=== PATIENT | female | born 1965 | race Caucasian/White ===

== ENCOUNTER 2018-07-01 09:13 | Day surgery (SDC) | payer BC ==
[2018-06-24 10:39] VITALS: BMI 21.2
--- NOTE | 2018-07-01 05:43 | P.HPOB ---
History of Present Illness H&P Date: 07/01/18 Chief Complaint: abnormal bleeding 53 year old presents for D&C hysteroscopy for abnormal uterine bleeding. Review of Systems All systems: negative Constitutional: Denies chills, Denies fever Eyes: denies blurred vision, denies pain Ears, nose, mouth and throat: Denies headache, Denies sore throat Cardiovascular: Denies chest pain, Denies shortness of breath Respiratory: Denies cough Gastrointestinal: Denies abdominal pain, Denies diarrhea, Denies nausea, Denies vomiting Genitourinary: Denies dysuria, Denies hematuria Musculoskeletal: Denies myalgias Integumentary: Denies pruritus, Denies rash Neurological: Denies numbness, Denies weakness Psychiatric: Denies anxiety, Denies depression Endocrine: Denies fatigue, Denies weight change Past Medical History Past Medical History: No Reported History Additional Past Medical History / Comment(s): fibroid cyst on uterus and ovary. abnormal vaginal bleeding History of Any Multi-Drug Resistant Organisms: None Reported Past Surgical History: Back Surgery Additional Past Surgical History / Comment(s): D&C, Past Anesthesia/Blood Transfusion Reactions: No Reported Reaction Smoking Status: Current every day smoker - Past Family History Father Family Medical History: Deep Vein Thrombosis (DVT) Additional Family Medical History / Comment(s): PE and DVT Mother Family Medical History: Coronary Artery Disease (CAD) Additional Family Medical History / Comment(s): 1st heart attack at 50 - passed at 67 from CAD Medications and Allergies Home Medications Medication Instructions Recorded Confirmed Type Hydrocodone/Acetaminophen [[place] 1 tab PO Q6HR PRN #12 tab 05/28/18 06/24/18 Rx 5-325] Allergies Allergy/AdvReac Type Severity Reaction Status Date / Time No Known Allergies Allergy Verified 06/24/18 10:32 Exam Osteopathic Statement: *. No significant issues noted on an osteopathic structural exam other than those noted in the History and Physical/Consult. Heart: RRR Lungs: CTAB Abdomen: soft, nontender Extremeties: neg elizabeth's Assessment and Plan (1) Abnormal vaginal bleeding Status: Acute Code(s): N93.9 - ABNORMAL UTERINE AND VAGINAL BLEEDING, UNSPECIFIED SNOMED Code(s): 013733833 Plan: 1. D&C hysteroscopy
[~2018-07-01 09:13] MED LIST: DEXAMETHASONE SOD PHOSPHATE 10 MG/ML 1 ML VIAL IV ONE; HYDROmorphone 0.5 MG/0.5 ML SYRINGE IVP PRN; LACTATED RINGERS 1,000 ML IV SCH; LIDOCAINE 1% 20 ML VIAL (10MG/ML) FOR IV START INTRADERMA PRN; MIDAZOLAM (PF) 2 MG/2 ML VIAL IV PRN; ONDANSETRON 4 MG/2 ML VIAL IVP ONE; SCOPOLAMINE 1.5MG/72HR PATCH TRANSDERM ONE
[2018-07-01] MEDS ORDERED: LIDOCAINE 1% INJ 10MG/ML (20 ML MDV) ONE (09:59)
[2018-07-01] MEDS ORDERED: fentaNYL (PF) 50 MCG/ML 2 ML AMP ONE (09:59)
[2018-07-01] MEDS ORDERED: PROPOFOL 10 MG/ML 20 ML VIAL IV ONE (09:59)
[2018-07-01] MEDS ORDERED: MIDAZOLAM 2 MG/2 ML VIAL ONE (09:59)
[2018-07-01] MEDS ORDERED: KETOROLAC 30 MG/ML 1 ML VIAL ONE (09:59)
[2018-07-01] MEDS ORDERED: ePHEDrine SULFATE/0.9% NACL/PF 50 MG/5 ML SYRINGE IV ONE (09:59)
--- NOTE | 2018-07-01 10:28 | P.OP ---
Date of Procedure: 07/01/18 Preoperative Diagnosis: 1. abnormal uterine bleeding Postoperative Diagnosis: same Procedure(s) Performed: D&C, hysteroscopy Anesthesia: MAC Surgeon: Kaelyn Sanchez Estimated Blood Loss (ml): 3 IV fluids (ml): 200 Urine output (ml): 25 Pathology: other (Endometrial curettings) Condition: stable Disposition: PACU Operative Findings: Atrophic endometrium noted in the fundus of the uterus, there was some tissue noted in the lower uterine segment and cervix. Moderate amount of endometrial curettings. Uterus sounded to 11 cm Description of Procedure: Patient is taken the operating room where general anesthesia was obtained without difficulty. She is prepped and draped in normal sterile fashion in dorsal lithotomy position, legs placed in candycane stirrups. Bladder was drained of all urine. Weighted speculum placed in the vagina and the anterior lip the cervix was grasped with single-tooth tenaculum. The cervix is dilated to #7 Hegar dilator. Hysteroscopy was performed. The uterus does have a smooth contour, the lining appears very thin and the fundus near the tubal ostia. There is some tissue noted in the lower uterine segment and endocervix. Sharp curet was then gently used to obtain endometrial curettings. The uterus sounded to 11 cm. All instruments removed from the uterus and vagina. Patient tolerated procedure well, sponge and instrument counts correct 2. She was taken to recovery room in stable condition.
[2018-07-01 10:43] VITALS: TEMP 97.9
[2018-07-01 11:06] VITALS: RESP 18
[2018-07-01 11:46] VITALS: BP 128/68; PULSE 85
== END 2018-07-01 12:22 | disposition home or self-care (01) ==
LOC: OR 09:13 → MERGE 09:13 → OR 12:22
PROVIDERS: ATTEND Obstetrics & Gynecology
DX: N85.8 Other specified noninflammatory disorders of uterus (principal); Z87.42 Personal history of other diseases of the female genital tract; F17.210 Nicotine dependence, cigarettes, uncomplicated; G89.29 Other chronic pain; M54.9 Dorsalgia, unspecified; Z82.49 Family history of ischemic heart disease and other diseases of the circulatory system; Z79.891 Long term (current) use of opiate analgesic
CPT/HCPCS: 81025; 88305; 58558; J2250; J1100; J2405; J2001; J3010; J1885; J2704

== ENCOUNTER → 2018-08-23 | Outpatient (CLI) | payer BC ==
[2018-08-23 10:31] LABS: Anisocytosis Slight; Basophils % (A) 1 %; Eosinophils # (A) 0.1 k/uL (0-0.7); Eosinophils % (A) 2 %; HCT 31.6 % (34.0-46.0); Hypochromasia Marked; Lymphocytes % (A) 26 %; MCH 19.2 pg (25.0-35.0); MCHC 28.6 g/dL (31.0-37.0); MCV 67.2 fL (80.0-100.0); Mean Platelet Volume 6.5; Microcytosis Marked; Monocytes # (A) 0.4 k/uL (0-1.0); Monocytes % (A) 5 %; Neutrophils % (A) 64 %; Platelet Count 332 k/uL (150-450); Poikilocytosis Slight; RDW 16.9 % (11.5-15.5); WBC 7.7 k/uL (3.8-10.6)
[2018-08-23 11:09] LABS: Target Cells Present
[2018-08-23 17:19] LABS: Anion Gap 6.3 mmol/L (4.00-12.00); Calcium 8.4 mg/dL (8.7-10.3); Carbon Dioxide 20.7 mmol/L (21.6-31.8); Potassium 3.9 mmol/L (3.5-5.5)
== END ==
LOC: LABWHC1 09:10
PROVIDERS: ATTEND Obstetrics & Gynecology
DX: Z01.812 Encounter for preprocedural laboratory examination (principal)
CPT/HCPCS: 36415; 80048; 85025

== ENCOUNTER 2018-09-02 05:40 | Day surgery (SDC) | payer BC ==
[~2018-09-02 05:40] MED LIST changes: -DEXAMETHASONE SOD PHOSPHATE 10 MG/ML 1 ML VIAL IV ONE; -HYDROmorphone 0.5 MG/0.5 ML SYRINGE IVP PRN; -LACTATED RINGERS 1,000 ML IV SCH; -LIDOCAINE 1% 20 ML VIAL (10MG/ML) FOR IV START INTRADERMA PRN; -MIDAZOLAM (PF) 2 MG/2 ML VIAL IV PRN; -ONDANSETRON 4 MG/2 ML VIAL IVP ONE; -SCOPOLAMINE 1.5MG/72HR PATCH TRANSDERM ONE; +ceFAZolin IN SWFI 2 GM/20 ML SYRINGE IVP ONE
[2018-09-02] MEDS ORDERED: fentaNYL (PF) 50 MCG/ML 2 ML AMP IV PRN (05:44)
[2018-09-02] MEDS ORDERED: HYDROmorphone 0.5 MG/0.5 ML SYRINGE IVP PRN (05:44)
--- NOTE | 2018-09-02 05:49 | P.HPOB ---
History of Present Illness H&P Date: 09/02/18 Chief Complaint: pain and bleeding 53 year old presents for [facility] BSO with da dolly. She has been having cramping and continuous bleeding. D&C showed endometrial polyp and her pain is still present. Review of Systems All systems: negative Constitutional: Denies chills, Denies fever Eyes: denies blurred vision, denies pain Ears, nose, mouth and throat: Denies headache, Denies sore throat Cardiovascular: Denies chest pain, Denies shortness of breath Respiratory: Denies cough Gastrointestinal: Denies abdominal pain, Denies diarrhea, Denies nausea, Denies vomiting Genitourinary: Denies dysuria, Denies hematuria Musculoskeletal: Denies myalgias Integumentary: Denies pruritus, Denies rash Neurological: Denies numbness, Denies weakness Psychiatric: Denies anxiety, Denies depression Endocrine: Denies fatigue, Denies weight change Past Medical History Past Medical History: No Reported History Additional Past Medical History / Comment(s): cysts on ovaries and uterus-having pain with heavy bleeding and clotting History of Any Multi-Drug Resistant Organisms: None Reported Past Surgical History: Back Surgery Additional Past Surgical History / Comment(s): back surgery 2007, d and c Past Anesthesia/Blood Transfusion Reactions: No Reported Reaction Additional Past Anesthesia/Blood Transfusion Reaction / Comment(s): no hx blood transfusion Smoking Status: Current every day smoker - Past Family History Father Family Medical History: Deep Vein Thrombosis (DVT), Pulmonary Embolus Additional Family Medical History / Comment(s): PE and DVT Mother Family Medical History: Coronary Artery Disease (CAD), Myocardial Infarction ([place]) Additional Family Medical History / Comment(s): 1st heart attack at 50 - passed at 67 from CAD Medications and Allergies Home Medications Medication Instructions Recorded Confirmed Type Melatonin 5 mg PO HS 11/25/14 08/25/18 History Ibuprofen [Motrin] 600 mg PO Q6HR PRN #30 tab 07/01/18 08/25/18 Rx Allergies Allergy/AdvReac Type Severity Reaction Status Date / Time No Known Allergies Allergy Verified 08/25/18 10:34 Exam Osteopathic Statement: *. No significant issues noted on an osteopathic structural exam other than those noted in the History and Physical/Consult. HEart: RRR Lungs: CTAB Abdomen: soft, nontender Extremeties: neg elizabeth's Assessment and Plan (1) Dysfunctional uterine bleeding Current Visit: Yes Status: Acute Code(s): N93.8 - OTHER SPECIFIED ABNORMAL UTERINE AND VAGINAL BLEEDING SNOMED Code(s): 62788302 Plan: 1. [facility] BSO with da dolly and diagnostic cystoscopy
[2018-09-02] MEDS: LIDOCAINE 1% 20 ML VIAL (10MG/ML) FOR IV START INTRADERMA PRN ×2 (06:38→06:45)
[2018-09-02] MEDS: LACTATED RINGERS 1,000 ML IV SCH ×2 (06:43→10:15)
[2018-09-02] MEDS: ONDANSETRON 4 MG/2 ML VIAL IVP ONE ×2 (06:49→09:37)
[2018-09-02] MEDS ORDERED: MIDAZOLAM 2 MG/2 ML VIAL IVP ONE (06:56)
[2018-09-02] MEDS ORDERED: ROCURONIUM BROMIDE 10 MG/ML 10 ML VIAL IV ONE (07:08)
[2018-09-02] MEDS ORDERED: NEOSTIGMINE 1 MG/ML 10 ML VIAL ONE (07:08)
[2018-09-02] MEDS ORDERED: GLYCOPYRROLATE 0.2 MG/ML 2 ML VIAL ONE (07:08)
[2018-09-02] MEDS ORDERED: fentaNYL (PF) 50 MCG/ML 2 ML AMP ONE (07:08)
[2018-09-02] MEDS ORDERED: MIDAZOLAM 2 MG/2 ML VIAL ONE (07:08)
[2018-09-02] MEDS ORDERED: ESMOLOL 100 MG/10 ML VIAL ONE (07:08)
[2018-09-02] MEDS ORDERED: LIDOCAINE 1% INJ 10MG/ML (20 ML MDV) ONE (07:08)
[2018-09-02] MEDS ORDERED: PROPOFOL 10 MG/ML 20 ML VIAL IV ONE (07:08)
[2018-09-02] MEDS ORDERED: ROPIVACAINE 5 MG/ML 30 ML VIAL MISCELLANE ONE (07:56)
--- NOTE | 2018-09-02 09:36 | P.OP ---
Date of Procedure: 09/02/18 Preoperative Diagnosis: 1. dysfunctional uterine bleeding 2. fibroid uterus Postoperative Diagnosis: 1. dysfunctional uterine bleeding 2. fibroid uterus 3. Endometriosis with bilateral endometriomas 4. Right hydrosalpinx Procedure(s) Performed: Total laparoscopic hysterectomy with bilateral salpingo-oophorectomy using da Khai, diagnostic cystoscopy Anesthesia: BRITTON Surgeon: Kaelyn Sanchez Governor Assembler #1: Tank Le Estimated Blood Loss (ml): 200 IV fluids (ml): 1,000 Urine output (ml): 100 Pathology: other (Uterus cervix bilateral tubes and ovaries) Condition: stable Disposition: PACU Description of Procedure: Patient taken the operating room where general anesthesia was obtained without difficulty. She is prepped and draped in normal sterile fashion dorsal lithotomy position, legs placed in the Braulio stirrups. Weighted speculum placed in the vagina and the anterior lip the cervix was grasped with single-tooth tenaculum. The uterus sounded to 8 cm and the cervix diameter was 3.5 cm. The appropriate manipulator tip and ring were placed on the Faith manipulator. The Faith manipulator was then placed in the uterus. Adler catheter was also placed. Attention was then turned to the abdomen and gloves were changed. A 5 mm supraumbilical incision was made the scalpel and a 5 mm optical trocar was placed under direct visualization. 10 cm to the right of this and 2 cm down a 5 mm incision was made and 8 mm da Khai port was placed under direct visualization. Same measurements on the opposite side of the patient's abdomen, the 5 mm incision was made and 8 mm da Khai port was placed under direct visualization. In the left upper quadrant a 10 mm incision was made and a 10 mm optical trocar was placed under direct visualization. The 5 mm optical trocar was then replaced with the 8 mm da Khai camera port. The robot was docked on patient's right side. The camera was introduced and then the monopolar curved scissor and [place] bipolar placed under direct visualization. I broke scrub and went to the physician console. The left infundibulopelvic ligament was cauterized with the [place] bipolar and cut with monopolar curved scissors. The left round ligament was cauterized with the [place] bipolar and cut with monopolar curved scissors. The posterior leaf of the broad ligament was taken down using the monopolar curved scissors. Anterior leaf of the broad ligament was then taken down using the monopolar curved scissors. The uterine artery was cauterized with the [place] bipolar and cut with monopolar curved scissors. The bladder flap was then started using the monopolar curved scissors. Attention was then turned to the right side of the patient's anatomy and the right infundibular pelvic ligament was cauterized with the [place] bipolar and cut with monopolar curved scissors. The right round ligament was cauterized with the [place] bipolar and cut with monopolar curved scissors. Posterior leaf of the broad ligament was taken down using the monopolar curved scissors and the anterior leaf was taken down using the monopolar curved scissors. The uterine artery was cauterized the [place] bipolar cut with monopolar curved scissors. The bladder flap was then finished on this side. Anterior colpotomy was made using the monopolar curved scissors. The rest of the uterus was from the vaginal cuff by following the ring around with the monopolar curved scissors through the uterosacral ligaments back to the anterior portion. Once the uterus and cervix were amputated they were pulled through the vaginal cuff. Hemostasis was assured. The instruments were changed for the Cardier forcep and the fadi suture cut. The vaginal cuff was then closed using O stratafix barbed suture in a running fashion. Hemostasis was again assured and the pelvis was irrigated. All instruments were removed from the abdomen and the robot was undocked. I scrubbed back in to perform a cystoscopy. There were jets from both ureteral orifices. The abdominal incisions were closed with 4-0 Vicryl in a subcuticular fashion. Patient tolerated the procedure well, sponge and instrument counts correct 2 and she was taken to recovery room in stable condition condition
[2018-09-02] MEDS ORDERED: diphenhydrAMINE 50 MG/ML 1 ML VIAL IVP ONE (09:51)
[2018-09-02] MEDS ORDERED: SIMETHICONE 80 MG CHEWABLE PO PRN (10:17)
[2018-09-02] MEDS ORDERED: diphenhydrAMINE 50 MG/ML 1 ML VIAL IVP PRN (10:17)
[2018-09-02] MEDS ORDERED: ONDANSETRON 4 MG/2 ML VIAL IVP PRN (10:17)
[2018-09-02] MEDS ORDERED: IBUPROFEN 600 MG TAB PO PRN (10:17)
[2018-09-02] MEDS ORDERED: Acetaminophen-Codeine 300-30mg TAB PO PRN (10:17)
[2018-09-02] MEDS ORDERED: METOCLOPRAMIDE 5 MG/ML 2 ML VIAL IVP PRN (10:17)
[2018-09-02] MEDS: Acetaminophen-Codeine 300-30mg TAB PO PRN ×2 (12:46→18:42)
[2018-09-02 16:24] VITALS: BMI 21.6
[2018-09-02] MEDS ORDERED: MELATONIN 5 MG TABLET PO SCH (21:00)
[2018-09-02] MEDS: NICOTINE 21MG/24HR PATCH TRANSDERM SCH (21:40)
[2018-09-02] MEDS: SENNOSIDES-DOCUSATE SODIUM 1 EACH TAB PO SCH (21:40)
[2018-09-03] MEDS: Acetaminophen-Codeine 300-30mg TAB PO PRN ×3 (01:18→12:58)
[2018-09-03] MEDS: LACTATED RINGERS 1,000 ML IV SCH ×2 (04:16→10:17)
[2018-09-03 06:47] LABS: Anisocytosis Slight; Basophils % (A) 0 %; Eosinophils # (A) 0.1 k/uL (0-0.7); Eosinophils % (A) 1 %; HCT 29.6 % (34.0-46.0); HGB 8.2 gm/dL (11.4-16.0); Hypochromasia Marked; Lymphocytes # (A) 1.8 k/uL (1.0-4.8); Lymphocytes % (A) 22 %; MCH 18.9 pg (25.0-35.0); MCHC 27.7 g/dL (31.0-37.0); MCV 68.4 fL (80.0-100.0); Microcytosis Marked; Monocytes # (A) 0.5 k/uL (0-1.0); Monocytes % (A) 6 %; Neutrophils # (A) 5.7 k/uL (1.3-7.7); Neutrophils % (A) 70 %; Platelet Count 275 k/uL (150-450); RBC 4.33 m/uL (3.80-5.40); RDW 17.3 % (11.5-15.5); WBC 8.2 k/uL (3.8-10.6)
[2018-09-03] MEDS: SENNOSIDES-DOCUSATE SODIUM 1 EACH TAB PO SCH (09:21)
[2018-09-03 09:43] VITALS: BP 115/71; PULSE 86; RESP 16; TEMP 97.8
[2018-09-03] MEDS: NICOTINE 21MG/24HR PATCH TRANSDERM SCH (12:28)
== END 2018-09-03 13:30 | disposition home or self-care (01) ==
LOC: OR 05:40 → 6PED 08:56 → OR 09-03 13:30
PROVIDERS: ATTEND Obstetrics & Gynecology
DX: D25.9 Leiomyoma of uterus, unspecified (principal); N70.11 Chronic salpingitis; N80.0 Endometriosis of uterus; N84.0 Polyp of corpus uteri; D27.1 Benign neoplasm of left ovary; N83.02 Follicular cyst of left ovary; N94.89 Other specified conditions associated with female genital organs and menstrual cycle; F17.210 Nicotine dependence, cigarettes, uncomplicated; Z82.49 Family history of ischemic heart disease and other diseases of the circulatory system
CPT/HCPCS: 58571; 81025; 86900; 86901; 85025; 86850; 88309; 36415; S4990; J2250; J1200; J2710; J2405; J2001; J3010; J2795; J2704

== ENCOUNTER 2019-01-30 13:03 | Emergency (ER) | payer BC ==
[2019-01-30 13:10] VITALS: BP 159/98; PULSE 93; RESP 16; TEMP 98.4
--- NOTE | 2019-01-30 13:23 | ED ---
General Adult HPI - General Chief complaint: Extremity Problem,Nontraumatic Stated complaint: Arm swollen/fluid Source: patient, RN notes reviewed Mode of arrival: ambulatory Limitations: no limitations - History of Present Illness Initial comments: This is a 53-year-old female who presents to the emergency department complaining of left elbow swelling. Patient states she doesn't remember any trauma. Patient states he is more swollen on Thursday and since been decreasing. Patient states today she noticed black and blue around the elbow is so she decided to come into the emergency department. Patient states on Thursday she did go to the urgent care they did x-rays and she said the x-rays are negative. Because they're negative does not want repeat x-rays. Patient denies any redness patient denies any fever chills patient denies any decreased range of motion. Patient states it is slightly tender in the areas of bruising. - Related Data Home Medications Medication Instructions Recorded Confirmed Melatonin 5 mg PO HS 11/25/09/02/18 Previous Rx's Medication Instructions Recorded Acetaminophen-Codeine 300-30mg 2 each PO Q6HR PRN #24 tab 09/03/18 [Tylenol w/codeine #3] Ibuprofen [Motrin] 600 mg PO Q6HR PRN #30 tab 09/03/18 Allergies Allergy/AdvReac Type Severity Reaction Status Date / Time No Known Allergies Allergy Verified 09/02/18 11:30 Review of Systems ROS Statement: Those systems with pertinent positive or pertinent negative responses have been documented in the HPI. ROS Other: All systems not noted in ROS Statement are negative. Past Medical History Past Medical History: No Reported History Additional Past Medical History / Comment(s): cysts on ovaries and uterus-having pain with heavy bleeding and clotting History of Any Multi-Drug Resistant Organisms: None Reported Past Surgical History: Back Surgery Additional Past Surgical History / Comment(s): back surgery 2008, d and c Past Anesthesia/Blood Transfusion Reactions: No Reported Reaction Additional Past Anesthesia/Blood Transfusion Reaction / Comment(s): no hx blood transfusion Past Psychological History: No Psychological Hx Reported Smoking Status: Current every day smoker - Past Family History Father Family Medical History: Deep Vein Thrombosis (DVT), Pulmonary Embolus Additional Family Medical History / Comment(s): PE and DVT Mother Family Medical History: Coronary Artery Disease (CAD), Myocardial Infarction ([place]) Additional Family Medical History / Comment(s): 1st heart attack at 50 - passed at 67 from CAD General Exam - General Exam Comments Initial Comments: GENERAL Patient is well-developed and well-nourished. Patient is in mild distress. EYES Patient's pupils are equal and round. Extraocular motion is intact SKIN Unremarkable NEURO The patient is alert and oriented 3 PYSCH Patient has normal interpersonal interactions. MUSCULOSKELETAL Left elbow has ecchymosis around the whole elbow slightly tender to touch no fluid accumulation no obvious olecranon bursitis. Limitations: no limitations Course Vital Signs 01/30/19 13:07 Temperature 98.4 F Pulse Rate 93 Respiratory 16 Rate Blood Pressure 159/98 O2 Sat by Pulse 98 Oximetry Disposition Clinical Impression: Elbow contusion Disposition: HOME SELF-CARE Instructions (If sedation given, give patient instructions): Contusion in Adults (ED) Is patient prescribed a controlled substance at d/c from ED?: No Referrals: None,Stated [Primary Care Provider] - 1-2 days Time of Disposition: 13:22
== END 2019-01-30 13:41 | disposition home or self-care (01) ==
LOC: EC 13:03
DX: S50.02XA Contusion of left elbow, initial encounter (principal); F17.200 Nicotine dependence, unspecified, uncomplicated; X58.XXXA Exposure to other specified factors, initial encounter
CPT/HCPCS: 99283

== ENCOUNTER 2019-12-20 17:36 | Emergency (ER) | payer BC ==
[2019-12-20 17:43] VITALS: BP 140/91; RESP 20; TEMP 98.1
[2019-12-20] MEDS ORDERED: ASPIRIN 81 MG PO STA (17:57)
[2019-12-20] MEDS ORDERED: SODIUM CHLORIDE 0.9% 500 ML 500 ML IV STA (17:57)
[2019-12-20 18:17] LABS: Basophils % (A) 0 %; Eosinophils # (A) 0.2 k/uL (0-0.7); Eosinophils % (A) 2 %; HCT 50.8 % (34.0-46.0); HGB 16.2 gm/dL (11.4-16.0); Lymphocytes # (A) 2.8 k/uL (1.0-4.8); Lymphocytes % (A) 34 %; MCH 26.6 pg (25.0-35.0); MCV 83.2 fL (80.0-100.0); Mean Platelet Volume 7.5; Monocytes # (A) 0.5 k/uL (0-1.0); Monocytes % (A) 6 %; Neutrophils # (A) 4.6 k/uL (1.3-7.7); Neutrophils % (A) 56 %; Platelet Count 273 k/uL (150-450); RBC 6.11 m/uL (3.80-5.40); RDW 14.8 % (11.5-15.5); WBC 8.3 k/uL (3.8-10.6)
[2019-12-20 18:26] LABS: ALT 10 U/L (4-34); AST 20 U/L (14-36); African American GFR (CKD) >90 (>60 ml/min/1.73 sqM); Albumin 4.2 g/dL (3.5-5.0); Alkaline Phosphatase 94 U/L (38-126); Anion Gap 10 mmol/L; Blood Urea Nitrogen 7 mg/dL (7-17); Calcium 9.6 mg/dL (8.4-10.2); Carbon Dioxide 21 mmol/L (22-30); Chloride 108 mmol/L (98-107); Glucose 92 mg/dL (74-99); Magnesium 2.1 mg/dL (1.6-2.3); Non-African American GFR(CKD) >90 (>60 ml/min/1.73 sqM); Sodium 139 mmol/L (137-145); Total Bilirubin 0.6 mg/dL (0.2-1.3)
[2019-12-20 18:27] LABS: INR 0.9 (<1.2); Partial Thromboplastin Time 25.1 sec (22.0-30.0); Prothrombin Time 9.8 sec (9.0-12.0)
[2019-12-20] MEDS ORDERED: IPRATROPIUM-ALBUTEROL 3 ML NEB INHALATION STA (18:51)
--- NOTE | 2019-12-20 18:54 | CT ---
EXAMINATION TYPE: CT chest angio for PE DATE OF EXAM: 12/20/2019 COMPARISON: 01/12/2018 HISTORY: chest pain, SOB CT DLP: 295.4 mGycm Automated exposure control for dose reduction was used. CONTRAST: Performed with IV Contrast, patient injected with 80cc mL of Isovue 370. There are 3-D post processed images. There is some groundglass interstitial infiltrates in the posterior lung nazario. There is no evidence of a pulmonary mass. There is no pleural effusion. There is no pericardial effusion. There is no mediastinal adenopathy. There are no hilar masses. There are a few bilateral bronchial ly mph nodes that measure up to 1 cm. There is normal contrast opacification of the pulmonary arteries. There are no filling defects. Thora cic aorta shows no sign of aneurysm or dissection. Thoracic vertebra have normal spacing and alignmen t. Posterior elements are intact. There are calcified splenic granulomata. IMPRESSION: Interstitial pulmonary infiltrates. No evidence of pulmonary embolism. No significant change compared to old exam.
[2019-12-20 19:20] VITALS: PULSE 79
[2019-12-20] MEDS ORDERED: AZITHROMYCIN 500 MG in SODIUM CHLORIDE 0.9% 250 ML IVPB STA (19:52)
[2019-12-20] MEDS ORDERED: AZITHROMYCIN 500 MG TAB PO STA (20:31)
[2019-12-20] MEDS: cefTRIAXone 1,000 MG VIAL (IM USE) IM STA ×2 (20:36→20:40)
--- NOTE | 2019-12-20 20:40 | ED ---
General Adult HPI - General Source: patient, RN notes reviewed, old records reviewed Mode of arrival: ambulatory Limitations: no limitations <Nick Ricketts - Last Filed: 12/20/19 20:31> <Mariely Pak - Last Filed: 12/26/19 00:37> - General Chief complaint: Chest Pain Stated complaint: LAURA Time Seen by Provider: 12/20/19 17:48 - History of Present Illness Initial comments: 53-year-old female patient was ED for evaluation of chest pain difficulty breathing. This noted around 2:00 today. Patient reports that at that time she found out that she had a mammogram which noticed some dense tissue that she had ureteral damage. Reports that she was very anxious about this. While driving to work she began to experience chest pain described as a sharp pain in both parasternal regions. Also some shortness of breath associated with it. Denies any other complaints. Systemic: Pt denies fatigue, fever/chills, rash. Pt denies weakness, night sweats, weight loss. Neuro: Pt denies headache, visual disturbances, syncope or pre-syncope. HEENT: Pt denies ocular discharge or irritation, otalgia, rhinorrhea, phar yngitis or notable lymphadenopathy. Cardiopulmonary: Pt denies heart palpitations. Abdominal/GI: Pt denies abdominal pain, n/v/d. : Pt denies dysuria, burning w/ urination, frequency/urgency. Denies new onset urinary or bowel incontinence. MSK: Pt denies myalgia, loss of strength or function in extremities. Neuro: Pt denies new onset weakness, paresthesias. (Nick Ricketts) - Related Data Home Medications Medication Instructions Recorded Confirmed Gabapentin 600 mg PO TID 12/20/19 12/20/19 Melatonin 5 mg PO HS PRN 12/20/19 12/20/19 Venlafaxine HCl [Effexor] 100 mg PO HS 12/20/19 12/20/19 Previous Rx's Medication Instructions Recorded Albuterol Inhaler [Ventolin Hfa 2 puff INHALATION RT-QID PRN #1 12/20/19 Inhaler] inhaler Albuterol Nebulized [Ventolin 2.5 mg INHALATION Q4H PRN 10 Days 12/20/19 Nebulized] #40 nebu Azithromycin [Zithromax Z-pack] 0 mg PO DIRECTED #6 tab 12/20/19 Allergies Allergy/AdvReac Type Severity Reaction Status Date / Time No Known Allergies Allergy Verified 12/20/19 19:17 Review of Systems ROS Other: All systems not noted in ROS Statement are negative. <LiliamNick Radha - Last Filed: 12/20/19 20:31> ROS Other: All systems not noted in ROS Statement are negative. <Teodoro Pakah Fabi - Last Filed: 12/26/19 00:37> ROS Statement: Those systems with pertinent positive or pertinent negative responses have been documented in the HPI. Past Medical History Past Medical History: No Reported History Additional Past Medical History / Comment(s): cysts on ovaries and uterus-having pain with heavy bleeding and clotting History of Any Multi-Drug Resistant Organisms: None Reported Past Surgical History: Back Surgery Additional Past Surgical History / Comment(s): back surgery 2007, d and c Past Anesthesia/Blood Transfusion Reactions: No Reported Reaction Additional Past Anesthesia/Blood Transfusion Reaction / Comment(s): no hx blood transfusion Past Psychological History: No Psychological Hx Reported Smoking Status: Current every day smoker Past Alcohol Use History: Occasional Past Drug Use History: Marijuana - Past Family History Father Family Medical History: Deep Vein Thrombosis (DVT), Pulmonary Embolus Additional Family Medical History / Comment(s): PE and DVT Mother Family Medical History: Coronary Artery Disease (CAD), Myocardial Infarction ([place]) Additional Family Medical History / Comment(s): 1st heart attack at 50 - passed at 67 from CAD <Nick Ricketts - Last Filed: 12/20/19 20:31> General Exam Limitations: no limitations <Nick Ricketts - Last Filed: 12/20/19 20:31> - General Exam Comments Initial Comments: Constitutional: NAD, AOX3, Pt has pleasant affect. HEENT: NC/AT, trachea midline, neck supple, no lymphadenopathy. Posterior pharynx non erythematous, without exudates. External ears appear normal, without discharge. Mucous membranes moist. Eyes PERRLA, EOM intact. There is no scleral icterus. No pallor noted. Cardiopulmonary: RRR, no murmurs, rubs or gallops, no JVD noted. Mild wheezing noted anteriorly along nazario. Improved air movement after breathing treatment. No peripheral edema. Abdominal exam: Abdomen soft and non-distended. Abdomen non-tender to palpation in all 4 quadrants. Bowel sounds active in LLQ. No hepatosplenomegaly. No ecchymosis Neuro: CN II-XII grossly intact. No nuchal rigidity. No raccon eyes, no griffin sign, no hemotympanum. No cervical spinal tenderness. MSK: No posterior calf tenderness bilaterally, homans sign negative bilaterally. Posterior tibialis and radial pulse +2 bilaterally. Sensation intact in upper and lower extremities. Full active ROM in upper and lower extremities, 5/5 stregnth. (Nick Ricketts) Course Vital Signs 12/20/19 12/20/19 12/20/19 17:41 19:13 19:20 Temperature 98.1 F Pulse Rate 100 82 79 Respiratory 20 Rate Blood Pressure 140/91 O2 Sat by Pulse 97 Oximetry Medical Decision Making - Lab Data Result diagrams: 12/20/19 18:06 12/20/19 18:06 - EKG Data -: EKG Interpreted by Me (and Dr. Pak ) <Nick Ricketts - Last Filed: 12/20/19 20:31> - Lab Data Result diagrams: 12/20/19 18:06 12/20/19 18:06 <Mariely Pak - Last Filed: 12/26/19 00:37> - Medical Decision Making 54-year-old female patient with seizure evaluation of chest pain and shortness of breath. Describes the pain is parasternal bilaterally. Sharp. Physical exam displayed some mild wheezing improve air movement after breathing treatment. Laboratory investigations are non-impressive. Troponin is negative. CT chest angiography displayed interstitial pulmonary infiltrates. No evidence of pulmonary embolism.Can change compared to old exam. Patient does report that she is having a cough which is productive in nature EKG displayed normal sinus rhythm, possible left atrial enlargement, incomplete right bundle branch block. Septal infarct age undetermined. There are some nonspecific changes from her prior EKG on 06/23/2018. I advised patient to state Hospital for admission. She declined this. I discussed risks including . She verbalized understanding she still wishes to leave. She states that her symptoms have resolved. I explained all medical test, imaging and EKG findings. She again verbalized understanding and refuses to stay. was present during this portion. I will prescribe patient azithromycin for possible pneumonia as well as breathing treatments. Patient to follow-up with the primary care provider as well as her engineer assistant tomorrow. She does report that she had a negative stress test last year. Patient will be signed out AMA. Case discussed with Dr. Pak. (Nick Ricketts) I was available for consultation in the emergency department. The history and physical exam were done by the midlevel provider. I was consulted for this patients care. I reviewed the case with the midlevel provider and based on their presentation of the patient, I agree with the assessment, medical decision making and plan of care as documented. Chart was dictated using [employer] dictation software. Attempts were made to correct any dictation errors however some typographical errors may persist. Patient was seen during a national state of emergency due to the Covid-19 pandemic. (Mariely Pak) - Lab Data Lab Results 12/20/19 12/20/19 12/20/19 Range/Units 18:06 18:06 18:06 WBC 8.3 (3.8-10.6) k/uL RBC 6.11 H (3.80-5.40) m/uL Hgb 16.2 H (11.4-16.0) gm/dL Hct 50.8 H (34.0-46.0) % MCV 83.2 (80.0-100.0) fL MCH 26.6 (25.0-35.0) pg MCHC 32.0 (31.0-37.0) g/dL RDW 14.8 (11.5-15.5) % Plt Count 273 (150-450) k/uL Neutrophils % 56 % Lymphocytes % 34 % Monocytes % 6 % Eosinophils % 2 % Basophils % 0 % Neutrophils # 4.6 (1.3-7.7) k/uL Lymphocytes # 2.8 (1.0-4.8) k/uL Monocytes # 0.5 (0-1.0) k/uL Eosinophils # 0.2 (0-0.7) k/uL Basophils # 0.0 (0-0.2) k/uL PT 9.8 (9.0-12.0) sec INR 0.9 (<1.2) APTT 25.1 (22.0-30.0) sec Sodium 139 (137-145) mmol/L Potassium 4.0 (3.5-5.1) mmol/L Chloride 108 H (98-107) mmol/L Carbon Dioxide 21 L (22-30) mmol/L Anion Gap 10 mmol/L BUN 7 (7-17) mg/dL Creatinine 0.56 (0.52-1.04) mg/dL Est GFR (CKD-EPI)AfAm >90 (>60 ml/min/1.73 sqM) Est GFR (CKD-EPI)NonAf >90 (>60 ml/min/1.73 sqM) Glucose 92 (74-99) mg/dL Calcium 9.6 (8.4-10.2) mg/dL Magnesium 2.1 (1.6-2.3) mg/dL Total Bilirubin 0.6 (0.2-1.3) mg/dL AST 20 (14-36) U/L ALT 10 (4-34) U/L Alkaline Phosphatase 94 (38-126) U/L Troponin I (0.000-0.034) ng/mL NT-Pro-B Natriuret Pep pg/mL Total Protein 7.0 (6.3-8.2) g/dL Albumin 4.2 (3.5-5.0) g/dL 12/20/19 12/20/19 Range/Units 18:06 18:06 WBC (3.8-10.6) k/uL RBC (3.80-5.40) m/uL Hgb (11.4-16.0) gm/dL Hct (34.0-46.0) % MCV (80.0-100.0) fL MCH (25.0-35.0) pg MCHC (31.0-37.0) g/dL RDW (11.5-15.5) % Plt Count (150-450) k/uL Neutrophils % % Lymphocytes % % Monocytes % % Eosinophils % % Basophils % % Neutrophils # (1.3-7.7) k/uL Lymphocytes # (1.0-4.8) k/uL Monocytes # (0-1.0) k/uL Eosinophils # (0-0.7) k/uL Basophils # (0-0.2) k/uL PT (9.0-12.0) sec INR (<1.2) APTT (22.0-30.0) sec Sodium (137-145) mmol/L Potassium (3.5-5.1) mmol/L Chloride (98-107) mmol/L Carbon Dioxide (22-30) mmol/L Anion Gap mmol/L BUN (7-17) mg/dL Creatinine (0.52-1.04) mg/dL Est GFR (CKD-EPI)AfAm (>60 ml/min/1.73 sqM) Est GFR (CKD-EPI)NonAf (>60 ml/min/1.73 sqM) Glucose (74-99) mg/dL Calcium (8.4-10.2) mg/dL Magnesium (1.6-2.3) mg/dL Total Bilirubin (0.2-1.3) mg/dL AST (14-36) U/L ALT (4-34) U/L Alkaline Phosphatase (38-126) U/L Troponin I <0.012 (0.000-0.034) ng/mL NT-Pro-B Natriuret Pep 28 pg/mL Total Protein (6.3-8.2) g/dL Albumin (3.5-5.0) g/dL - EKG Data EKG Comments: Ventricular rate 86. For 136, QRS 100, QT/QTC 392/469. No sensory rhythm, possible left atrial enlargement. Complete right bundle-branch block. Septal infarct age undetermined. Abnormal EKG. (Nick Ricketts) Disposition Is patient prescribed a controlled substance at d/c from ED?: No <Nick Ricketts - Last Filed: 12/20/19 20:31> <Mariely Pak - Last Filed: 12/26/19 00:37> Clinical Impression: Chest pain, Pneumonia Disposition: Left Against Medical Advice Condition: Undetermined Instructions (If sedation given, give patient instructions): Chest Pain (ED), Pneumonia (ED) Additional Instructions: Follow-up with primary care provider and engineer assistant tomorrow. Take antibiotics as directed. Return to ER if condition worsens in any way. Use breathing treatments as needed. Prescriptions: Albuterol Inhaler [Ventolin Hfa Inhaler] 2 puff INHALATION RT-QID PRN #1 inhaler PRN Reason: Wheezing Albuterol Nebulized [Ventolin Nebulized] 2.5 mg INHALATION Q4H PRN 10 Days #40 nebu PRN Reason: Cough Azithromycin [Zithromax Z-pack] 0 mg PO DIRECTED #6 tab Referrals: Elier Macedo MD [Primary Care Provider] - 1-2 days
== END 2019-12-20 20:51 | disposition left against medical advice (07) ==
LOC: EC 17:36
DX: J18.9 Pneumonia, unspecified organism (principal); F17.200 Nicotine dependence, unspecified, uncomplicated; Z53.29 Procedure and treatment not carried out because of patient's decision for other reasons
CPT/HCPCS: 99285; 96374; 96361; 36415; 94640; 83880; 80053; 83735; 84484; 85025; 85610; 85730; 71275; J0696; Q9967

== ENCOUNTER 2020-02-27 18:21 | Emergency (ER) | payer BC ==
[2020-02-27 18:26] VITALS: RESP 18; TEMP 97.6
[2020-02-27] MEDS ORDERED: KETOROLAC 15 MG/ML 1 ML VIAL IM STA (18:39)
--- NOTE | 2020-02-27 18:42 | ED ---
General Adult HPI - General Chief complaint: Chest Pain Stated complaint: chest pain Time Seen by Provider: 02/27/20 18:30 Source: patient Mode of arrival: ambulatory Limitations: no limitations - History of Present Illness Initial comments: Dictation was produced using [employer] dictation software. please excuse any grammatical, word or spelling errors. This patient was cared for during a federal and state declared state of emergency secondary to Covid 19 Chief Complaint: 55-year-old female presents today with chest pain. History of Present Illness: This 55-year-old female she has no significant past medical history. Patient states she has sharp chest pain. Swirsky depressed and when she moves. Patient has a history of coronary artery disease. Denies any shortness of breath. She is of the pain began as a sharp pain and suddenly became more dull. No radiation to the jaw, shoulders or extremities. Patient denies any history of blood clots. She has no leg symptoms. The ROS documented in this emergency department record has been reviewed and confirmed by me. Those systems with pertinent positive or negative responses have been documented in the HPI. All other systems are other negative and/or noncontributory. PHYSICAL EXAM: General Impression: Alert and oriented x3, acute distress secondary to pain HEENT: Normocephalic atraumatic, extra-ocular movements intact, pupils equal and reactive to light bilaterally, mucous membranes moist. Cardiovascular: Heart regular rate and rhythm Chest: Able to complete full sentences, no retractions, no tachypnea, tenderness to palpation to the anterior sternum and left anterior chest wall Abdomen: abdomen soft, non-tender, non-distended, no organomegaly Musculoskeletal: Pulses present and equal in all extremities, no peripheral edema Motor: no focal deficits noted Neurological: CN II-XII grossly intact, no focal motor or sensory deficits noted Skin: Intact with no visualized rashes Psych: Normal affect and mood ED course: 55-year-old female with clinical presentation consistent with costochondritis. Patient's pain is very atypical and reproducible at bedside. Signs upon arrival are within acceptable limits. She is not tachycardic or hypoxic. EKG does not show any signs of ischemia or infarction. Laboratory evaluation obtained. CBC, metabolic panel is unremarkable. Troponin is negative. Chest x-ray is nonacute. Patient reevaluated bedside and reports significant improvement Toradol. Discussed with patient that her pain is secondary to muscle skeletal cause likely costochondritis. Patient to take [id number] analgesia. She is given Tylenol No. 3 starter pack and Lidoderm patch. Patient be discharged. EKG interpretation: Ventricular rate 86, normal sinus rhythm,. 160, QRS 96. No KS prolongation, no QTC prolongation, no ST or T-wave changes noted. Overall, this EKG is unremarkable - Related Data Home Medications Medication Instructions Recorded Confirmed Gabapentin 600 mg PO TID 12/20/19 12/20/19 Melatonin 5 mg PO HS PRN 12/20/19 12/20/19 Venlafaxine HCl [Effexor] 100 mg PO HS 12/20/19 12/20/19 Previous Rx's Medication Instructions Recorded Albuterol Inhaler [Ventolin Hfa 2 puff INHALATION RT-QID PRN #1 12/20/19 Inhaler] inhaler Albuterol Nebulized [Ventolin 2.5 mg INHALATION Q4H PRN 10 Days 12/20/19 Nebulized] #40 nebu Azithromycin [Zithromax Z-pack] 0 mg PO DIRECTED #6 tab 12/20/19 Allergies Allergy/AdvReac Type Severity Reaction Status Date / Time No Known Allergies Allergy Verified 02/27/20 18:26 Review of Systems ROS Statement: Those systems with pertinent positive or pertinent negative responses have been documented in the HPI. ROS Other: All systems not noted in ROS Statement are negative. Past Medical History Past Medical History: No Reported History Additional Past Medical History / Comment(s): cysts on ovaries and uterus-having pain with heavy bleeding and clotting History of Any Multi-Drug Resistant Organisms: None Reported Past Surgical History: Back Surgery Additional Past Surgical History / Comment(s): back surgery 2008, d and c Past Anesthesia/Blood Transfusion Reactions: No Reported Reaction Additional Past Anesthesia/Blood Transfusion Reaction / Comment(s): no hx blood transfusion Past Psychological History: No Psychological Hx Reported Past Alcohol Use History: Occasional Past Drug Use History: Marijuana - Past Family History Father Family Medical History: Deep Vein Thrombosis (DVT), Pulmonary Embolus Additional Family Medical History / Comment(s): PE and DVT Mother Family Medical History: Coronary Artery Disease (CAD), Myocardial Infarction ([place]) Additional Family Medical History / Comment(s): 1st heart attack at 50 - passed at 67 from CAD General Exam Limitations: no limitations Course Vital Signs 02/27/20 18:23 Temperature 97.6 F Pulse Rate 95 Respiratory 18 Rate Blood Pressure 157/82 O2 Sat by Pulse 99 Oximetry Medical Decision Making - Lab Data Result diagrams: 02/27/20 19:04 02/27/20 19:04 Lab Results 02/27/20 02/27/20 02/27/20 Range/Units 19:04 19:04 19:04 WBC 11.5 H (3.8-10.6) k/uL RBC 6.18 H (3.80-5.40) m/uL Hgb 16.8 H (11.4-16.0) gm/dL Hct 53.2 H (34.0-46.0) % MCV 86.1 (80.0-100.0) fL MCH 27.2 (25.0-35.0) pg MCHC 31.6 (31.0-37.0) g/dL RDW 14.1 (11.5-15.5) % Plt Count 259 (150-450) k/uL Neutrophils % 71 % Lymphocytes % 20 % Monocytes % 4 % Eosinophils % 1 % Basophils % 2 % Neutrophils # 8.1 H (1.3-7.7) k/uL Lymphocytes # 2.3 (1.0-4.8) k/uL Monocytes # 0.5 (0-1.0) k/uL Eosinophils # 0.1 (0-0.7) k/uL Basophils # 0.3 H (0-0.2) k/uL Sodium 140 (137-145) mmol/L Potassium 3.9 (3.5-5.1) mmol/L Chloride 109 H (98-107) mmol/L Carbon Dioxide 21 L (22-30) mmol/L Anion Gap 10 mmol/L BUN 7 (7-17) mg/dL Creatinine 0.56 (0.52-1.04) mg/dL Est GFR (CKD-EPI)AfAm >90 (>60 ml/min/1.73 sqM) Est GFR (CKD-EPI)NonAf >90 (>60 ml/min/1.73 sqM) Glucose 94 (74-99) mg/dL Calcium 9.3 (8.4-10.2) mg/dL Troponin I <0.012 (0.000-0.034) ng/mL Disposition Clinical Impression: Chest pain Disposition: HOME SELF-CARE Condition: Good Instructions (If sedation given, give patient instructions): Costochondritis (ED) Is patient prescribed a controlled substance at d/c from ED?: No Referrals: Elier Macedo MD [Primary Care Provider] - 1-2 days Time of Disposition: 19:48
[2020-02-27] MEDS ORDERED: KETOROLAC 15 MG/ML 1 ML VIAL IVP STA (18:53)
[2020-02-27 19:10] LABS: Basophils # (A) 0.3 k/uL (0-0.2); Basophils % (A) 2 %; Eosinophils # (A) 0.1 k/uL (0-0.7); Eosinophils % (A) 1 %; HCT 53.2 % (34.0-46.0); HGB 16.8 gm/dL (11.4-16.0); Lymphocytes # (A) 2.3 k/uL (1.0-4.8); Lymphocytes % (A) 20 %; MCH 27.2 pg (25.0-35.0); MCHC 31.6 g/dL (31.0-37.0); MCV 86.1 fL (80.0-100.0); Mean Platelet Volume 7.8; Monocytes # (A) 0.5 k/uL (0-1.0); Monocytes % (A) 4 %; Neutrophils # (A) 8.1 k/uL (1.3-7.7); Neutrophils % (A) 71 %; Platelet Count 259 k/uL (150-450); RBC 6.18 m/uL (3.80-5.40); RDW 14.1 % (11.5-15.5); WBC 11.5 k/uL (3.8-10.6)
[2020-02-27 19:31] LABS: African American GFR (CKD) >90 (>60 ml/min/1.73 sqM); Anion Gap 10 mmol/L; Blood Urea Nitrogen 7 mg/dL (7-17); Calcium 9.3 mg/dL (8.4-10.2); Carbon Dioxide 21 mmol/L (22-30); Chloride 109 mmol/L (98-107); Glucose 94 mg/dL (74-99); Non-African American GFR(CKD) >90 (>60 ml/min/1.73 sqM); Potassium 3.9 mmol/L (3.5-5.1); Sodium 140 mmol/L (137-145)
[2020-02-27] MEDS ORDERED: LIDOCAINE 5% PATCH TOPICAL STA (19:43)
[2020-02-27] MEDS ORDERED: ACET/COD 300 MG/30 MG STARTER PACK 6 TAB BTL PO STA (19:48)
--- NOTE | 2020-02-27 19:54 | XR ---
EXAMINATION TYPE: XR chest 2V DATE OF EXAM: 02/27/2020 COMPARISON: 01/12/2018 HISTORY: Chest pain TECHNIQUE: FINDINGS: There is no heart failure nor confluent pneumonic infiltrate. Costophrenic angles are clear . There are chest leads. Bony thorax is intact. IMPRESSION: No active cardiopulmonary disease. No change.
[2020-02-27 20:14] VITALS: BP 129/83; PULSE 84
== END 2020-02-27 20:07 | disposition home or self-care (01) ==
LOC: EC 18:21
DX: R07.89 Other chest pain (principal); I25.10 Atherosclerotic heart disease of native coronary artery without angina pectoris; F32.9 Major depressive disorder, single episode, unspecified; Z79.899 Other long term (current) drug therapy; Z82.49 Family history of ischemic heart disease and other diseases of the circulatory system
CPT/HCPCS: 36415; 93005; 80048; 84484; 85025; 71046; 99285; 96374; J1885

== ENCOUNTER 2020-12-20 17:41 | Observation (INO) | payer BC ==
[2020-12-20] MEDS ORDERED: MORPHINE SULFATE 4 MG/ML SYRINGE IVP STA (18:21)
[2020-12-20 18:47] LABS: Basophils % (A) 0 %; Eosinophils # (A) 0.2 k/uL (0-0.7); Eosinophils % (A) 2 %; HGB 17.9 gm/dL (11.4-16.0); Lymphocytes # (A) 2.1 k/uL (1.0-4.8); Lymphocytes % (A) 21 %; MCH 30.4 pg (25.0-35.0); MCHC 34.5 g/dL (31.0-37.0); Mean Platelet Volume 7.9; Monocytes # (A) 0.5 k/uL (0-1.0); Monocytes % (A) 5 %; Neutrophils # (A) 7.1 k/uL (1.3-7.7); Neutrophils % (A) 71 %; Platelet Count 232 k/uL (150-450); RBC 5.91 m/uL (3.80-5.40); RDW 12.5 % (11.5-15.5)
--- NOTE | 2020-12-20 18:54 | ED ---
General Adult HPI - General Chief complaint: Chest Pain Stated complaint: Chest Pain Time Seen by Provider: 12/20/20 18:05 Source: patient, RN notes reviewed, old records reviewed Mode of arrival: wheelchair Limitations: no limitations - History of Present Illness Initial comments: 55-year-old female with no previous cardiac history presenting for evaluation of left-sided chest pain which is been present for the past one day. No radiation symptoms. Pain stays in the left anterior chest. Patient denies a pleuritic component. This is a dull ache. She has some mild associated dyspnea. No vomiting. No fever. No lower extremity pain or swelling. - Related Data Home Medications Medication Instructions Recorded Confirmed Gabapentin 600 mg PO TID 12/20/19 12/20/19 Melatonin 5 mg PO HS PRN 12/20/19 12/20/19 Venlafaxine HCl [Effexor] 100 mg PO HS 12/20/19 12/20/19 Previous Rx's Medication Instructions Recorded Albuterol Inhaler [Ventolin Hfa 2 puff INHALATION RT-QID PRN #1 12/20/19 Inhaler] inhaler Albuterol Nebulized [Ventolin 2.5 mg INHALATION Q4H PRN 10 Days 12/20/19 Nebulized] #40 nebu Azithromycin [Zithromax Z-pack (6 0 mg PO DIRECTED #6 tab 12/20/19 tabs)] Allergies Allergy/AdvReac Type Severity Reaction Status Date / Time No Known Allergies Allergy Verified 02/27/20 18:26 Review of Systems ROS Statement: Those systems with pertinent positive or pertinent negative responses have been documented in the HPI. ROS Other: All systems not noted in ROS Statement are negative. Past Medical History Past Medical History: No Reported History Additional Past Medical History / Comment(s): cysts on ovaries and uterus-having pain with heavy bleeding and clotting History of Any Multi-Drug Resistant Organisms: None Reported Past Surgical History: Back Surgery, Hysterectomy Additional Past Surgical History / Comment(s): back surgery 2007, Past Anesthesia/Blood Transfusion Reactions: No Reported Reaction Additional Past Anesthesia/Blood Transfusion Reaction / Comment(s): no hx blood transfusion Past Psychological History: No Psychological Hx Reported Smoking Status: Current every day smoker Past Alcohol Use History: Occasional Past Drug Use History: Marijuana - Past Family History Father Family Medical History: Deep Vein Thrombosis (DVT), Pulmonary Embolus Additional Family Medical History / Comment(s): PE and DVT Mother Family Medical History: Coronary Artery Disease (CAD), Myocardial Infarction ([place]) Additional Family Medical History / Comment(s): 1st heart attack at 50 - passed at 67 from CAD General Exam Limitations: no limitations General appearance: alert, in no apparent distress Head exam: Present: atraumatic, normocephalic Eye exam: Present: normal appearance, PERRL ENT exam: Present: normal exam Neck exam: Present: normal inspection. Absent: tenderness, meningismus Respiratory exam: Present: normal lung sounds bilaterally. Absent: respiratory distress, wheezes Cardiovascular Exam: Present: regular rate, normal rhythm GI/Abdominal exam: Present: soft. Absent: distended, tenderness, guarding, rebound Extremities exam: Present: normal inspection, normal capillary refill. Absent: pedal edema, calf tenderness Neurological exam: Present: alert, oriented X3, CN II-XII intact. Absent: motor sensory deficit Psychiatric exam: Present: anxious Skin exam: Present: warm, dry, intact Course Vital Signs 12/20/20 12/20/20 12/20/20 18:00 18:10 19:09 Temperature 97.9 F Pulse Rate 63 76 Pulse Rate [ 80 Bilateral Radial] Respiratory 16 18 Rate Blood Pressure 163/103 150/96 O2 Sat by Pulse 98 94 L Oximetry EKG Findings - EKG Comments: EKG Findings:: EKG: Normal sinus rhythm, rate of 75, MO interval 160, QRS duration 88, QTC 442, no ST segment elevation. Medical Decision Making - Medical Decision Making 55-year-old female presenting for evaluation of left-sided chest pain. EKG sinus rhythm without ST segment elevation. Chest x-rays negative for acute cardiac pulmonary disease. Patient has a normal CBC, normal CMP, negative initial troponin, negative d-dimer. Her symptoms have some typical features. She has no previous cardiac history. She will be kept in observation for serial cardiac enzymes, telemetry, cardiology consultation. Case discussed with Dr. Rider who will admit. - Lab Data Result diagrams: 12/20/20 18:20 12/20/20 18:20 Lab Results 12/20/20 12/20/20 12/20/20 Range/Units 18:20 18:20 18:20 WBC 10.0 (3.8-10.6) k/uL RBC 5.91 H (3.80-5.40) m/uL Hgb 17.9 H (11.4-16.0) gm/dL Hct 52.0 H (34.0-46.0) % MCV 88.0 (80.0-100.0) fL MCH 30.4 (25.0-35.0) pg MCHC 34.5 (31.0-37.0) g/dL RDW 12.5 (11.5-15.5) % Plt Count 232 (150-450) k/uL MPV 7.9 Neutrophils % 71 % Lymphocytes % 21 % Monocytes % 5 % Eosinophils % 2 % Basophils % 0 % Neutrophils # 7.1 (1.3-7.7) k/uL Lymphocytes # 2.1 (1.0-4.8) k/uL Monocytes # 0.5 (0-1.0) k/uL Eosinophils # 0.2 (0-0.7) k/uL Basophils # 0.0 (0-0.2) k/uL PT 10.1 (9.0-12.0) sec INR 0.9 (<1.2) APTT 25.1 (22.0-30.0) sec D-Dimer 0.34 (<0.60) mg/L FEU Sodium 141 (137-145) mmol/L Potassium 4.2 (3.5-5.1) mmol/L Chloride 109 H (98-107) mmol/L Carbon Dioxide 22 (22-30) mmol/L Anion Gap 10 mmol/L BUN 9 (7-17) mg/dL Creatinine 0.54 (0.52-1.04) mg/dL Est GFR (CKD-EPI)AfAm >90 (>60 ml/min/1.73 sqM) Est GFR (CKD-EPI)NonAf >90 (>60 ml/min/1.73 sqM) Glucose 93 (74-99) mg/dL Calcium 9.7 (8.4-10.2) mg/dL Magnesium 2.1 (1.6-2.3) mg/dL Total Bilirubin 0.5 (0.2-1.3) mg/dL AST 23 (14-36) U/L ALT 13 (4-34) U/L Alkaline Phosphatase 94 (38-126) U/L Troponin I (0.000-0.034) ng/mL Total Protein 7.0 (6.3-8.2) g/dL Albumin 4.4 (3.5-5.0) g/dL Lipase 133 (23-300) U/L 12/20/20 Range/Units 18:20 WBC (3.8-10.6) k/uL RBC (3.80-5.40) m/uL Hgb (11.4-16.0) gm/dL Hct (34.0-46.0) % MCV (80.0-100.0) fL MCH (25.0-35.0) pg MCHC (31.0-37.0) g/dL RDW (11.5-15.5) % Plt Count (150-450) k/uL MPV Neutrophils % % Lymphocytes % % Monocytes % % Eosinophils % % Basophils % % Neutrophils # (1.3-7.7) k/uL Lymphocytes # (1.0-4.8) k/uL Monocytes # (0-1.0) k/uL Eosinophils # (0-0.7) k/uL Basophils # (0-0.2) k/uL PT (9.0-12.0) sec INR (<1.2) APTT (22.0-30.0) sec D-Dimer (<0.60) mg/L FEU Sodium (137-145) mmol/L Potassium (3.5-5.1) mmol/L Chloride (98-107) mmol/L Carbon Dioxide (22-30) mmol/L Anion Gap mmol/L BUN (7-17) mg/dL Creatinine (0.52-1.04) mg/dL Est GFR (CKD-EPI)AfAm (>60 ml/min/1.73 sqM) Est GFR (CKD-EPI)NonAf (>60 ml/min/1.73 sqM) Glucose (74-99) mg/dL Calcium (8.4-10.2) mg/dL Magnesium (1.6-2.3) mg/dL Total Bilirubin (0.2-1.3) mg/dL AST (14-36) U/L ALT (4-34) U/L Alkaline Phosphatase (38-126) U/L Troponin I <0.012 (0.000-0.034) ng/mL Total Protein (6.3-8.2) g/dL Albumin (3.5-5.0) g/dL Lipase (23-300) U/L Disposition Clinical Impression: Chest pain Disposition: ADMITTED IP TO THIS HOSP Condition: Stable Is patient prescribed a controlled substance at d/c from ED?: No Referrals: Hang Rider MD [Primary Care Provider] - 1-2 days Decision to Admit Reason: Admit from EC Decision Date: 12/20/20 Decision Time: 19:49
[2020-12-20 19:05] LABS: ALT 13 U/L (4-34); AST 23 U/L (14-36); African American GFR (CKD) >90 (>60 ml/min/1.73 sqM); Albumin 4.4 g/dL (3.5-5.0); Alkaline Phosphatase 94 U/L (38-126); Anion Gap 10 mmol/L; Blood Urea Nitrogen 9 mg/dL (7-17); Calcium 9.7 mg/dL (8.4-10.2); Carbon Dioxide 22 mmol/L (22-30); Chloride 109 mmol/L (98-107); Glucose 93 mg/dL (74-99); Lipase 133 U/L (23-300); Magnesium 2.1 mg/dL (1.6-2.3); Non-African American GFR(CKD) >90 (>60 ml/min/1.73 sqM); Potassium 4.2 mmol/L (3.5-5.1); Sodium 141 mmol/L (137-145); Total Bilirubin 0.5 mg/dL (0.2-1.3)
[2020-12-20 19:11] LABS: D-Dimer 0.34 mg/L FEU (<0.60); INR 0.9 (<1.2); Partial Thromboplastin Time 25.1 sec (22.0-30.0); Prothrombin Time 10.1 sec (9.0-12.0)
--- NOTE | 2020-12-20 19:17 | XR ---
EXAMINATION TYPE: XR chest 2V DATE OF EXAM: 12/20/2020 COMPARISON: Chest x-ray February 27, 2020 HISTORY: Chest pressure and mild shortness of breath TECHNIQUE: Frontal and lateral views of the chest are obtained. FINDINGS: There is chronic parenchymal change without suspicious focal air space opacity, pleural ef fusion, or pneumothorax seen. The cardiac silhouette size is stable and upper limits of normal. Th e osseous structures are intact. IMPRESSION: Chronic changes without acute pulmonary process. No significant change from prior.
[2020-12-20] MEDS ORDERED: PANTOPRAZOLE 40 MG/10 ML VIAL IVP STA (19:46)
[2020-12-20] MEDS ORDERED: ACETAMINOPHEN TAB 325 MG TAB PO PRN (19:46)
[2020-12-20] MEDS ORDERED: ASPIRIN 325 MG TAB PO STA (19:46)
[2020-12-20] MEDS ORDERED: MORPHINE SULFATE 4 MG/ML SYRINGE IV PRN (19:46)
[2020-12-20] MEDS ORDERED: NALOXONE 0.4 MG/ML 1 ML VIAL IV PRN (19:46)
[2020-12-20] MEDS ORDERED: ONDANSETRON 4 MG/2 ML VIAL IVP PRN (19:46)
[2020-12-20] MEDS: SODIUM CHLORIDE 0.9% 1,000 ML IV SCH (22:03)
[2020-12-20] MEDS ORDERED: hydrALAZINE HCL 20 MG/ML 1 ML VIAL IVP PRN (23:38)
[2020-12-20] MEDS ORDERED: PROPRANOLOL 20 MG TAB PO SCH (23:45)
[2020-12-20] MEDS ORDERED: traZODone HCL 50 MG TAB PO SCH (23:45)
[2020-12-21] MEDS ORDERED: ATORVASTATIN 80 MG TAB PO STA (08:11)
[2020-12-21] MEDS ORDERED: NITROGLYCERIN SL TABS 0.4 MG TAB SUBLINGUAL PRN (08:11)
[2020-12-21] MEDS ORDERED: ALPRAZolam 0.25 MG TAB PO PRN (08:11)
[2020-12-21] MEDS ORDERED: ALPRAZolam 0.5 MG TAB PO PRN (08:11)
[2020-12-21] MEDS ORDERED: HEPARIN SODIUM,PORCINE/PF 5,000 UNIT/0.5 ML SYRINGE SQ STA (08:15)
[2020-12-21] MEDS: SODIUM CHLORIDE 0.9% 1,000 ML IV SCH (08:29)
[2020-12-21] MEDS ORDERED: ETODOLAC 400 MG TAB PO SCH (09:00)
[2020-12-21] MEDS ORDERED: PANTOPRAZOLE 40 MG/10 ML VIAL IV SCH (09:00)
[2020-12-21] MEDS ORDERED: PROPRANOLOL 20 MG TAB PO SCH (09:00)
[2020-12-21] MEDS ORDERED: METOPROLOL TARTRATE 12.5 MG TAB PO SCH (09:00)
[2020-12-21] MEDS ORDERED: VENLAFAXINE HCL 50 MG TAB PO SCH (09:00)
--- NOTE | 2020-12-21 10:41 | P.CRDCN ---
History of Present Illness History of present illness: HISTORY OF PRESENTING ILLNESS This is a pleasant 55-year-old female past medical history significant for chronic nicotine dependence. She does not follow with a care aide. We have been asked to see in consultation for chest pain. Patient is seen and examined at bedside, no acute distress. Patient started to have left-sided chest pain on Thursday night after work. 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 After work she began to have left-sided pressure that radiated to her left shoulder. She had associated shortness of breath. Her left-sided chest pressure has progressively been getting worse over the past 2448 hours in intensity and decided to present to the emergency department. She denied any nausea, vomiting, lightheadedness, dizziness, palpitations. Denies symptoms of orthopnea or PND. She states that the IV morphine helped with her pain. She denies history of coronary artery disease, hypertension, [place], stroke, diabetes. She does have a family history of cardiac disease. Her mother and her father of an [place] in their 60s. She is a current every day smoker. She smokes one pack per day for the past 30 years. She occasionally drinks alcohol, but not daily. She denies illicit drug use. She states that she did undergo an exercise stress test about 2 years ago, however she cannot tolerate the treadmill she only walked for about a few minutes and had to stop. She states the stress test was not repeated. Propanolol is on her home medication list, she denies taking this. She currently takes trazodone 50 mg nightly, Effexor 100 mg daily. DIAGNOSTICS EKG on arrival revealed sinus rhythm, heart rate 75, nonspecific STT wave abnormalities, T wave inversion in lead V2. EKG this morning revealed sinus rhythm, heart rate 66, T wave inversion in leads V2V6 Prior EKG in February 2020 patient was in sinus rhythm, heart rate 86, prolonged QT 488 ms, no STT wave abnormalities. Telemetry tracings indicate sinus mechanism, heart rate 60 to 80s occasional pauses on telemetry all less than 3 seconds. Stress Echo test 2017 patient walked for a total of 5 minutes and 30 seconds achieving 86% of predicted maximal heart rate, had chest discomfort and lightheadedness. There was [address] segment depression noted in the inferior lateral leads. Creatinine and Postexercise normal stress echo. Echocardiogram 08/2017 revealed an EF greater than 55%, LA is mildly dilated, mild MR, mild TR. Chest xray no acute cardiopulmonary process. Laboratory reviewed, troponin negative 3, sodium 141, potassium 4.2, serum creatinine 0.54, magnesium 2.1, d-dimer negative REVIEW OF SYSTEMS At the time of my exam: CONSTITUTIONAL: Denies fever or chills. CARDIOVASCULAR: Positive chest pain, positive shortness of breath Denies orthopnea, PND or palpitations. RESPIRATORY: Denies cough. GASTROINTESTINAL: Denies abdominal pain, diarrhea, constipation, nausea or vomiting. MUSCULOSKELETAL: Denies myalgias. NEUROLOGIC: Denies numbness, tingling, headacbe or weakness. ENDOCRINE: Denies fatigue, weight change, polydipsia or polyurina. GENITOURINARY: Denies burning, hematuria or urgency with micturation. HEMATOLOGIC: Denies history of anemia or bleeding. PHYSICAL EXAMINATION Blood pressure 108/72 heart rate 65 afebrile and maintaining oxygen saturation on room air. CONSTITUTIONAL: No apparent distress. HEENT: Head is normocephalic. Pupils are equal, round. Sclerae anicteric. Mucous membranes of the mouth are moist. No JVD. No carotid bruit. CHEST EXAMINATION: Lungs are clear to auscultation. No chest wall tenderness is noted on palpation or with deep breathing. HEART EXAMINATION: Regular rate and rhythm. S1, S2 heard. ABDOMEN: Soft, nontender. Positive bowel sounds. EXTREMITIES: 2+ peripheral pulses, no lower extremity edema and no calf t enderness. SKIN: intact NEUROLOGIC EXAMINATION: Patient is awake, alert and oriented x3. ASSESSMENT Chest pain, concerning for unstable angina Chronic nicotine dependence Hypertension PLAN Obtain 2D echocardiogram and doppler study to assess cardiac structure and function. Give SubQ heparin Start IV fluids NaCl 100mL/hr Start metoprolol tartrate 12.5mg BID We recommend cardiac catheterization. Patient in agreement with the procedure. This will be done today by Dr. Krause I have discussed the risks, benefits and alternative therapies for the above- mentioned procedure and for both sedation/analgesia as well as necessary blood product administration, if indicated, as they pertain to this patient. The patient has indicated understanding and acceptance of the risks and procedures discussed. Questions have been answered appropriately and he is agreeable to move forward with the above-stated procedure. Lipid Panel Smoking cessation discussed and highly recommended. Further recommendations based on clinical course Nurse Practitioner note has been reviewed, I agree with a documented findings and plan of care. Patient was seen and examined. Past Medical History Past Medical History: No Reported History Additional Past Medical History / Comment(s): cysts on ovaries and uterus-having pain with heavy bleeding and clotting History of Any Multi-Drug Resistant Organisms: None Reported Past Surgical History: Back Surgery, Hysterectomy Additional Past Surgical History / Comment(s): back surgery 2007, 2018 hyst Past Anesthesia/Blood Transfusion Reactions: No Reported Reaction Additional Past Anesthesia/Blood Transfusion Reaction / Comment(s): no hx blood transfusion Past Psychological History: No Psychological Hx Reported Smoking Status: Current every day smoker Past Alcohol Use History: Occasional Additional Past Alcohol Use History / Comment(s): started smoking at age 19,1ppd Past Drug Use History: Marijuana - Past Family History Father Family Medical History: Deep Vein Thrombosis (DVT), Pulmonary Embolus Additional Family Medical History / Comment(s): PE and DVT Mother Family Medical History: Coronary Artery Disease (CAD), Myocardial Infarction ([place]) Additional Family Medical History / Comment(s): 1st heart attack at 50 - passed at 67 from CAD Medications and Allergies Home Medications Medication Instructions Recorded Confirmed Type Venlafaxine HCl [Effexor] 100 mg PO DAILY 12/20/19 12/20/20 History Diclofenac Sodium [Voltaren] 75 mg PO BID 12/20/20 12/20/20 History traZODone HCL 50 mg PO HS 12/20/20 12/20/20 History Allergies Allergy/AdvReac Type Severity Reaction Status Date / Time No Known Allergies Allergy Verified 12/20/20 19:56 Physical Exam Vitals: Vital Signs Temp Pulse Pulse Resp BP BP BP 12/21/20 07:00 97.3 F L 80 17 153/88 12/21/20 02:00 18 12/21/20 01:41 97.4 F L 65 18 108/72 12/20/20 23:16 168/92 12/20/20 22:35 98.3 F 72 17 177/110 12/20/20 21:00 80 16 162/92 12/20/20 19:09 76 18 150/96 12/20/20 18:10 80 12/20/20 18:00 97.9 F 63 16 163/103 Pulse Ox 12/21/20 07:00 94 L 12/21/20 02:00 12/21/20 01:41 94 L 12/20/20 23:16 12/20/20 22:35 93 L 12/20/20 21:00 95 12/20/20 19:09 94 L 12/20/20 18:10 12/20/20 18:00 98 Intake and Output 12/20/20 12/21/20 12/21/20 22:59 06:59 14:59 Other: # Voids 1 1 Weight 73.482 kg Results 12/20/20 18:20 12/20/20 18:20 Cardiac Enzymes 12/20/20 12/20/20 12/20/20 Range/Units 18:20 18:20 21:03 AST 23 (14-36) U/L Troponin I <0.012 <0.012 (0.000-0.034) ng/mL 12/21/20 Range/Units 00:04 AST (14-36) U/L Troponin I 0.017 (0.000-0.034) ng/mL Coagulation 12/20/20 Range/Units 18:20 PT 10.1 (9.0-12.0) sec APTT 25.1 (22.0-30.0) sec CBC 12/20/20 Range/Units 18:20 WBC 10.0 (3.8-10.6) k/uL RBC 5.91 H (3.80-5.40) m/uL Hgb 17.9 H (11.4-16.0) gm/dL Hct 52.0 H (34.0-46.0) % Plt Count 232 (150-450) k/uL Comprehensive Metabolic Panel 12/20/20 Range/Units 18:20 Sodium 141 (137-145) mmol/L Potassium 4.2 (3.5-5.1) mmol/L Chloride 109 H (98-107) mmol/L Carbon Dioxide 22 (22-30) mmol/L BUN 9 (7-17) mg/dL Creatinine 0.54 (0.52-1.04) mg/dL Glucose 93 (74-99) mg/dL Calcium 9.7 (8.4-10.2) mg/dL AST 23 (14-36) U/L ALT 13 (4-34) U/L Alkaline Phosphatase 94 (38-126) U/L Total Protein 7.0 (6.3-8.2) g/dL Albumin 4.4 (3.5-5.0) g/dL Current Medications Generic Name Dose Route Start Last Admin Trade Name Fredrick PRN Reason Stop Dose Admin Acetaminophen 650 mg 12/20/20 19:46 Acetaminophen Tab 325 Mg Tab PO Q6HR PRN Mild Pain or Fever > 100.5 Etodolac 400 mg 12/21/20 09:00 Etodolac 400 Mg Tab PO BID RITESH Hydralazine HCl 10 mg 12/20/20 23:38 Hydralazine Hcl 20 Mg/Ml 1 Ml Vial IVP Q6HR PRN Blood Pressure - High Sodium Chloride 1,000 mls @ 75 mls/hr 12/20/20 20:00 12/20/20 22:03 Saline 0.9% IV 75 mls/hr .[id number] RITESH Administration Morphine Sulfate 4 mg 12/20/20 19:46 Morphine Sulfate 4 Mg/Ml Syringe IV Q4HR PRN Severe Pain Naloxone HCl 0.2 mg 12/20/20 19:46 Naloxone 0.4 Mg/Ml 1 Ml Vial IV Q2M PRN Opioid Reversal Ondansetron HCl 4 mg 12/20/20 19:46 Ondansetron 4 Mg/2 Ml Vial IVP Q8HR PRN Nausea And Vomiting Pantoprazole Sodium 40 mg 12/21/20 09:00 Pantoprazole 40 Mg/10 Ml Vial IV DAILY RITESH Propranolol HCl 20 mg 12/20/20 23:45 12/21/20 00:27 Propranolol 20 Mg Tab PO 20 mg BID RITESH Administration Trazodone HCl 50 mg 12/20/20 23:45 12/21/20 00:10 Trazodone Hcl 50 Mg Tab PO 50 mg HS RITESH Administration Venlafaxine HCl 100 mg 12/21/20 09:00 Venlafaxine Hcl 50 Mg Tab PO DAILY RITESH Intake and Output 12/20/20 12/21/20 12/21/20 22:59 06:59 14:59 Other: # Voids 1 1 Weight 73.482 kg 12/20/20 18:20 12/20/20 18:20
[2020-12-21] MEDS ORDERED: MIDAZOLAM 2 MG/2 ML VIAL IV ONE (11:03)
[2020-12-21] MEDS ORDERED: LIDOCAINE 1% INJ 10MG/ML (20 ML MDV) SQ ONE (11:04)
[2020-12-21] MEDS ORDERED: IV FLUID CONTINUATION 900 ML IV ONE (11:06)
[2020-12-21] MEDS ORDERED: VERAPAMIL SYRINGE (5 MG/10 ML) INTRAARTER ONE (11:08)
[2020-12-21] MEDS ORDERED: NITROGLYCERIN SL TABS 0.4 MG TAB SUBLINGUAL ONE (11:13)
[2020-12-21] MEDS ORDERED: IOPAMIDOL-370 100ML BTL INJ ONE (11:14)
[2020-12-21] MEDS ORDERED: ATORVASTATIN 20 MG TAB PO SCH (11:15)
[2020-12-21] MEDS ORDERED: SODIUM CHLORIDE 0.9% 1,000 ML IV SCH ×2 (11:30→18:00)
[2020-12-21] MEDS ORDERED: NICOTINE 14MG/24HR PATCH TRANSDERM SCH (11:30)
--- NOTE | 2020-12-21 11:38 | ECHOF ---
Referral Reason:chest pain, LV function MEASUREMENTS -------- HEIGHT: 165.1 cm WEIGHT: 73.5 kg BP: IVSd: 1.3 cm (0.6 - 1.1) LVIDd: 4.2 cm (3.9 - 5.3) LVPWd: 1.7 cm (0.6 - 1.1) IVSs: 1.7 cm LVIDs: 3.3 cm LVPWs: 1.8 cm LAESV Index (A-L): 30.61 ml/m Ao Diam: 3.3 cm (2.0 - 3.7) AV Cusp: 2.0 cm (1.5 - 2.6) MV EXCURSION: 16.144 mm (> 18.000) MV EF SLOPE: 97 mm/s (70 - 150) EPSS: 0.5 cm MV E Lázaro: 0.53 m/s MV DecT: 164 ms MV A Lázaro: 1.00 m/s MV E/A Ratio: 0.53 RAP: 5.00 mmHg RVSP: 19.75 mmHg FINDINGS -------- Sinus rhythm. This was a technically adequate study. The left ventricular size is normal. There is mild concentric left ventricular hypertrophy. Overa ll left ventricular systolic function is normal with, an EF between 55 - 60 %. The right ventricle is normal in size. LA is midly dilated 29-33ml/m2. The right atrial size is normal. The aortic valve is trileaflet, and appears structurally normal. No aortic stenosis or regurgitation. Mild mitral regurgitation is present. Mild tricuspid regurgitation present. Right ventricular systolic pressure is normal at < 35 mmHg. There is no pulmonic regurgitation present. There is no pericardial effusion. CONCLUSIONS -------- 1. The left ventricular size is normal. 2. There is mild concentric left ventricular hypertrophy. 3. Overall left ventricular systolic function is normal with, an EF between 55 - 60 %. 4. The right ventricle is normal in size. 5. LA is midly dilated 29-33ml/m2. 6. The right atrial size is normal. 7. The aortic valve is trileaflet, and appears structurally normal. No aortic stenosis or regurgitati on. 8. Mild mitral regurgitation is present. 9. Mild tricuspid regurgitation present. 10. There is no pericardial effusion. HAT LINING PASTER: Mindi Irvin RDCS
--- NOTE | 2020-12-21 12:52 | CC ---
CARDIAC CATHETERIZATION REPORT DATE OF SERVICE: 12/21/2020 PROCEDURE: Left heart catheterization, coronary angiography. PERFORMED BY: Dr. Steve Krause. Moderate conscious sedation time was 18 minute. Patient was administered Versed. Oxygen saturation, hemodynamics and EKG were monitored closely. CLINICAL INFORMATION: Mrs. Мария Mccarthy is a 55-year-old lady with a history of smoking, who came into the hospital with chest pressure suggestive angina with precordial ST-T abnormality. Troponins were unremarkable. She was advised cardiac cath after due discussion regarding risks, benefits, and options. PROCEDURE NOTE: Under local anesthesia and strict aseptic precautions, a 6-Setswana introducer was placed in the right radial artery. Using a JL3.5 and JR4 catheters, I performed coronary angiography and the same right catheter was used to check LV pressure but LV gram was not performed. The sheath was taken out and TR band applied as per protocol. Saturation the fingers of the right hand was 92%. The patient tolerated procedure well without complications. She was sent to the room uneventfully. CARDIAC CATH FINDINGS: The left ventricular end-diastolic pressure were about 14 mmHg. There was no gradient across aortic valve. CORONARY ANGIOGRAPHY FINDINGS: RIGHT CORONARY ARTERY: Dominant vessel. No significant disease in the proximal and midportion. There was a large acute marginal branch that comes off and supplies a fair amount of myocardium. Distally it bifurcates into PDA and PLV. PDA has about a 35% narrowing. No significant disease in the dominant RCA. PLV is larger vessel. LEFT MAIN CORONARY ARTERY: Short patent disease-free vessel that immediately bifurcates into LAD and circumflex. LEFT ANTERIOR DESCENDING CORONARY ARTERY: Good caliber vessel extends along the anterior wall, gives off septal and diagonal branches. In the midportion, there is a 35% narrowing. In the LAD, there are multiple 30-35 percent narrowing in the distal half of the LAD, gives off a good-sized diagonal branch that subdivides into 2 branches, has minor irregularities. Mid LAD therefore has a 35% narrowing with distal LAD having diffuse areas of 30% to 35% narrowing. LEFT POSTERIOR CIRCUMFLEX CORONARY ARTERY: Nondominant vessel gives off a single obtuse marginal that runs laterally and supplies a fair amount of myocardium and then continuation of circumflex in the AV groove distally seems to be occluded totally and tapers into a small vessel and there is distal total occlusion of the circumflex. Not much myocardium being supplied by the circumflex beyond the total occlusion. LEFT VENTRICULOGRAM: LV-gram was not performed. FINAL IMPRESSION: This patient has a right dominant system, 35% PDA stenosis of RCA, mid LAD a 35% narrowing, good size, good caliber vessel. Circumflex marginal is free of significant disease, but continuation of circumflex in the AV groove distally is totally occluded with limited amount of myocardium being supplied beyond it. LV pressures are normal. No gradient across the aortic valve. RECOMMENDATIONS: Findings were discussed with the patient and . Continued medical therapy with risk factor modification with the beta blockers and statin agents. Advised to quit smoking. She can be discharged today and I will see her in the office next week. MMODL / IJN: [id number] /
[2020-12-21 14:30] VITALS: TEMP 97.6
[2020-12-21 15:28] VITALS: BP 137/81; PULSE 77; RESP 16
--- NOTE | 2020-12-21 16:29 | HP ---
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 Continued to have left-sided chest pressure radiating up to the shoulder. Morphine helped pain. She cannot drink alcohol, but does continue to smoke. She had a stress test 3 days ago. She came in and Cardiology assessed her. She takes trazodone 50 at night and Effexor 100 mg daily for anxiety depression. EKG showed nonspecific ST-T changes. She went for heart catheterization which showed minimal blockage. She has been cleared for discharge tonight. REVIEW OF SYSTEMS: Fourteen-point review of systems negative except for mentioned in HPI. Echo with ejection fraction 50%. She had negative D-dimer, negative chest x-ray. PHYSICAL EXAMINATION: Blood pressure 110/70, O2 in a high 90s on room air. CARDIOVASCULAR: S1, S2. LUNGS: Clear. GI: Soft. HEMATOLOGY: Negative Homans'. PSYCH: Fair mood and affect. NEUROLOGIC: Alert and oriented x3. ASSESSMENT: 1. This is atypical chest pain, suspicious possible angina with negative heart catheterization. 2. Possible bronchospasm or esophageal spasm. 3. Chronic nicotine addiction. 4. Hypertension. PLAN: Echo was normal. Heart catheterization has been done, minimal blockage. Medications have been altered and adjusted for hypertension. Possible discharge home later today. MMODL / IJN: [id number] /
[2020-12-22] MEDS ORDERED: HEPARIN SODIUM,PORCINE 2,500 UNIT in SODIUM CHLORIDE 0.9% 250 ML IRRIGATION PRN (07:00)
[2020-12-22] MEDS ORDERED: HEPARIN SODIUM,PORCINE 10,000 UNIT in SODIUM CHLORIDE 0.9% 1,000 ML IRRIGATION PRN (07:00)
[2020-12-22] MEDS ORDERED: ATORVASTATIN 40 MG TAB PO SCH (09:00)
[2020-12-22] MEDS ORDERED: ASPIRIN 81 MG PO SCH (09:00)
== END 2020-12-21 18:13 ==
LOC: EC 17:41 → 6NMEDSUR 19:46
PROVIDERS: ADMIT Family Medicine; ATTEND Family Medicine
DX: R07.89 Other chest pain (principal); I10 Essential (primary) hypertension; R06.02 Shortness of breath; F17.210 Nicotine dependence, cigarettes, uncomplicated; F41.9 Anxiety disorder, unspecified; F32.9 Major depressive disorder, single episode, unspecified; Z79.899 Other long term (current) drug therapy; Z87.42 Personal history of other diseases of the female genital tract; Z90.710 Acquired absence of both cervix and uterus; Z98.890 Other specified postprocedural states; Z82.49 Family history of ischemic heart disease and other diseases of the circulatory system
CPT/HCPCS: 93005 ×2; 96372; 96374; 96375; 99285; 36415; 93306; 93458; 85379; 80053; 83690; 83735; 84484 ×2; 85025; 85610; 85730; 71046; G0378 ×2; C1894; S4990; J2250; J2270; J2001; J1644 ×2; C9113 ×2; Q9967

== ENCOUNTER 2022-12-24 18:55 | Inpatient (IN) | payer BC, OTHER ==
[2022-12-24 20:11] LABS: Amphetamine Screen,Urine Not Detected (NotDetected); Benzodiazepines Screen,Urine Not Detected (NotDetected); Cocaine Screen,Urine Not Detected (NotDetected); Methadone Screen, Urine Not Detected (NotDetected); Opiate Screen,Urine Not Detected (NotDetected); Phencyclidine Screen,Urine Not Detected (NotDetected); Tricyclic Antidepressant,Urine Not Detected (NotDetected); Urn Cannabinoid Scrn Detected (NotDetected)
[2022-12-24 20:12] LABS: Barbiturate Screen,Urine Not Detected (NotDetected); Oxycodone Screen, Urine Not Detected (NotDetected)
--- NOTE | 2022-12-24 20:29 | ED ---
Psych HPI - General Chief Complaint: Psychiatric Symptoms Stated Complaint: mental health Time Seen by Provider: 12/24/22 19:39 Source: patient - History of Present Illness Initial Comments: 57-year-old female her prior history of suicide attempt and depression who states she is here today for evaluation because she's showing suicidal feeling depressed she has no particular plan but she states she just can't cope with anything she's feeling very anxious not handling stressor a well she's had no job and feels like she can't handle evidence overwhelming her. She denies any alcohol or street drug usage. This is been going on for approximately a week she does have a prior history of overdose in the past. No other current complaints or modifying factors MD Complaint: suicidal ideation, feels depressed - Related Data Home Medications Medication Instructions Recorded Confirmed Venlafaxine HCl [Effexor] 100 mg PO DAILY 12/20/19 12/20/20 Diclofenac Sodium [Voltaren] 75 mg PO BID 12/20/20 12/20/20 traZODone HCL 50 mg PO HS 12/20/20 12/20/20 Previous Rx's Medication Instructions Recorded Aspirin 81 mg PO DAILY chew 12/21/20 Atorvastatin [Lipitor] 40 mg PO DAILY 30 Days #30 tab 12/21/20 Metoprolol Tartrate [Lopressor] 12.5 mg PO BID 30 Days #60 tab 12/21/20 Nicotine 14Mg/24Hr Patch [Habitrol] 1 patch TRANSDERM DAILY 30 Days 12/21/20 #30 patch Allergies Allergy/AdvReac Type Severity Reaction Status Date / Time No Known Allergies Allergy Verified 12/24/22 19:15 Review of Systems ROS Statement: Those systems with pertinent positive or pertinent negative responses have been documented in the HPI. ROS Other: All systems not noted in ROS Statement are negative. Past Medical History Past Medical History: No Reported History Additional Past Medical History / Comment(s): cysts on ovaries and uterus-having pain with heavy bleeding and clotting History of Any Multi-Drug Resistant Organisms: None Reported Past Surgical History: Back Surgery, Hysterectomy Additional Past Surgical History / Comment(s): back surgery 2007, 2018 hyst Past Anesthesia/Blood Transfusion Reactions: No Reported Reaction Additional Past Anesthesia/Blood Transfusion Reaction / Comment(s): no hx blood transfusion Past Psychological History: Anxiety, Depression Smoking Status: Current every day smoker Past Alcohol Use History: Occasional Past Drug Use History: Marijuana - Past Family History Father Family Medical History: Deep Vein Thrombosis (DVT), Pulmonary Embolus Additional Family Medical History / Comment(s): PE and DVT Mother Family Medical History: Coronary Artery Disease (CAD), Myocardial Infarction (GA) Additional Family Medical History / Comment(s): 1st heart attack at 50 - passed at 67 from CAD General Exam - General Exam Comments Initial Comments: This is a well-developed well-nourished awake alert oriented 4 female Limitations: no limitations General appearance: alert, anxious Head exam: Present: atraumatic, normocephalic, normal inspection Eye exam: Present: normal appearance, PERRL, EOMI. Absent: scleral icterus, conjunctival injection, periorbital swelling ENT exam: Present: normal exam, mucous membranes moist Neck exam: Present: normal inspection. Absent: tenderness, meningismus, lymphadenopathy Respiratory exam: Present: normal lung sounds bilaterally. Absent: respiratory distress, wheezes, rales, rhonchi, stridor Cardiovascular Exam: Present: regular rate, normal rhythm, normal heart sounds. Absent: systolic murmur, diastolic murmur, rubs, gallop, clicks GI/Abdominal exam: Absent: distended, tenderness, guarding, rebound, rigid Extremities exam: Present: normal inspection, full ROM, normal capillary refill. Absent: tenderness, pedal edema, joint swelling, calf tenderness Back exam: Present: normal inspection Neurological exam: Present: alert, oriented X3, CN II-XII intact Psychiatric exam: Present: depressed, suicidal ideation Skin exam: Present: warm, dry, intact, normal color. Absent: rash Course Vital Signs 12/24/22 19:09 Temperature 98.5 F Pulse Rate 111 H Respiratory 18 Rate Blood Pressure 191/75 O2 Sat by Pulse 97 Oximetry Medical Decision Making - Medical Decision Making The patient was evaluated by the EPS service and will be admitted for inpatient evaluation and treatment of depression and suicidal ideationWas pt. sent in by a medical professional or institution (, PA, CHILD CARE CENTRE DIRECTOR, urgent care, hospital, or retirement...) When possible be specific @ -No Did you speak to anyone other than the patient for history (EMS, parent, family, police, friend...)? What history was obtained from this source @ -No Did you review nursing and triage notes (agree or disagree)? Why? @ -I reviewed and agree with nursing and triage notes Were old charts reviewed (outside hosp., previous admission, EMS record, old EKG, old radiological studies, urgent care reports/EKG's, retirement records)? Report findings @ -Multiple old charts were reviewed Differential Diagnosis (chest pain, altered mental status, abdominal pain women, abdominal pain men, vaginal bleeding, weakness, fever, dyspnea, syncope, headache, dizziness, GI bleed, back pain, seizure, CVA, palpatations, mental health, musculoskeletal)? @ -Depression EKG interpreted by me (3pts min.). @ -Not done X-rays interpreted by me (1pt min.). @ -None done CT interpreted by me (1pt min.). @ -None done U/S interpreted by me (1pt. min.). @ -None done What testing was considered but not performed or refused? (CT, X-rays, U/S, labs)? Why? @ -None What meds were considered but not given or refused? Why? @ -None Did you discuss the management of the patient with other professionals (professionals i.e. , PA, CHILD CARE CENTRE DIRECTOR, lab, RT, psych nurse, hospital social worker, heart specialist, teacher, liaison officer, case maker)? Give summary @ -EPS service Was smoking cessation discussed for >3mins.? @ -No Was critical care preformed (if so, how long)? @ -No Were there social determinants of health that impacted care today? How? (Homelessness, low income, unemployed, alcoholism, drug addiction, transportation, low edu. Level, literacy, decrease access to med. care, group home, rehab)? @ -No Was there de-escalation of care discussed even if they declined (Discuss DNR or withdrawal of care, Hospice)? DNR status @ -No What co-morbidities impacted this encounter? (DM, HTN, Smoking, COPD, CAD, Cancer, CVA, ARF, Chemo, Hep., AIDS, mental health diagnosis, sleep apnea, morbid obesity)? @ -History of bipolar disorder history of previous suicide attempt Was patient admitted / discharged? Hospital course, mention meds given and route, prescriptions, significant lab abnormalities, going to OR and other pertinent info. @ -Patient was admitted to the psychiatric unit for inpatient evaluation and treatment] Undiagnosed new problem with uncertain prognosis? @ -No Drug Therapy requiring intensive monitoring for toxicity (Heparin, Nitro, Insulin, Cardizem)? @ -No Were any procedures done? @ -No Diagnosis/symptom? @ -Patient depression, suicidal ideation Acute, or Chronic, or Acute on Chronic? @ -Acute on chronic Uncomplicated (without systemic symptoms) or Complicated (systemic symptoms)? @ -default Side effects of treatment? @ -No Exacerbation, Progression, or Severe Exacerbation? @ -No Poses a threat to life or bodily function? How? (Chest pain, USA, GA, pneumonia, PE, COPD, DKA, ARF, appy, cholecystitis, CVA, Diverticulitis, Homicidal, Suicidal, threat to staff... and all critical care pts) @ -No - Lab Data Lab Results 12/24/22 Range/Units 19:43 Urine Opiates Screen Not Detected (NotDetected) Ur Oxycodone Screen Not Detected (NotDetected) Urine Methadone Screen Not Detected (NotDetected) Ur Propoxyphene Screen Not Detected (NotDetected) Ur Barbiturates Screen Not Detected (NotDetected) U Tricyclic Antidepress Not Detected (NotDetected) Ur Phencyclidine Scrn Not Detected (NotDetected) Ur Amphetamines Screen Not Detected (NotDetected) U Methamphetamines Scrn Not Detected (NotDetected) U Benzodiazepines Scrn Not Detected (NotDetected) Urine Cocaine Screen Not Detected (NotDetected) U Marijuana (THC) Screen Detected H (NotDetected) Disposition Clinical Impression: Depression, Suicidal ideation Disposition: TRANSFER TO PSYCH HOSP/UNIT Condition: Stable Referrals: Hang Rider MD [Primary Care Provider] - 1-2 days Decision Date: 12/24/22 Decision Time: 22:48
[2022-12-24] MEDS ORDERED: MAGNESIUM HYDROXIDE 2,400 MG/30 ML CUP PO PRN (23:22)
[2022-12-24] MEDS ORDERED: haloperidoL 5 MG TAB PO PRN (23:22)
[2022-12-24] MEDS ORDERED: LORazepam 1 MG TAB PO PRN (23:22)
[2022-12-24] MEDS ORDERED: MAG HYDROX/AL HYDROX/SIMETH 30 ML CUP PO PRN (23:22)
[2022-12-24] MEDS ORDERED: HALOPERIDOL LACTATE 5 MG/ML 1 ML VIAL IM PRN (23:22)
[2022-12-24] MEDS ORDERED: ACETAMINOPHEN TAB 325 MG TAB PO PRN (23:22)
[2022-12-24] MEDS ORDERED: LORazepam 2 MG/ML INJ IM PRN (23:22)
[2022-12-25 06:30] LABS: Basophils % (A) 0 %; Eosinophils # (A) 0.2 k/uL (0-0.7); Eosinophils % (A) 3 %; HCT 51.8 % (34.0-46.0); HGB 17.6 gm/dL (11.4-16.0); Lymphocytes # (A) 2.4 k/uL (1.0-4.8); Lymphocytes % (A) 41 %; MCH 30.8 pg (25.0-35.0); MCV 90.6 fL (80.0-100.0); Monocytes # (A) 0.3 k/uL (0-1.0); Monocytes % (A) 5 %; Neutrophils % (A) 50 %; Platelet Count 213 k/uL (150-450); RBC 5.72 m/uL (3.80-5.40); RDW 12.1 % (11.5-15.5); WBC 5.9 k/uL (3.8-10.6)
[2022-12-25 06:48] LABS: ALT 13 U/L (4-34); AST 20 U/L (14-36); African American GFR (CKD) >90 (>60 ml/min/1.73 sqM); Albumin 3.8 g/dL (3.5-5.0); Alkaline Phosphatase 68 U/L (38-126); Anion Gap 5 mmol/L; Bilirubin, Delta 0.2 mg/dL (0.0-0.2); Bilirubin,Unconjugated 0.7 mg/dL (0.0-1.1); Blood Urea Nitrogen 7 mg/dL (7-17); Carbon Dioxide 24 mmol/L (22-30); Chloride 111 mmol/L (98-107); Glucose 87 mg/dL (74-99); Non-African American GFR(CKD) >90 (>60 ml/min/1.73 sqM); Potassium 4.2 mmol/L (3.5-5.1); Sodium 140 mmol/L (137-145); Total Bilirubin 0.9 mg/dL (0.2-1.3); Total Protein 6.5 g/dL (6.3-8.2)
[2022-12-25] MEDS ORDERED: NICOTINE 14MG/24HR PATCH TRANSDERM SCH (09:00)
[2022-12-25] MEDS: NICOTINE 21MG/24HR PATCH TRANSDERM SCH (09:11)
[2022-12-25] MEDS ORDERED: FLUoxetine HCL 20 MG CAP PO STA (11:14)
[2022-12-25 11:18] LABS: Chol/HDL Ratio 4.56 Ratio; LDL Cholesterol,Calculated 108.4 mg/dL (0.0-131.0)
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
[2022-12-25] MEDS ORDERED: TEMAZEPAM 7.5 MG CAP PO SCH (21:00)
[2022-12-26] MEDS: FLUoxetine HCL 10 MG CAP PO SCH (08:51)
[2022-12-26] MEDS: NICOTINE 21MG/24HR PATCH TRANSDERM SCH (08:51)
--- NOTE | 2022-12-26 10:23 | P.PN ---
Progress Note - Text Progress Note Date: 12/26/22 Interval History: Patient was seen reading a book in bed and was directable and agreeable to speak with administrative underwriter in the office. Currently, the patient is not reporting any suicidal or homicidal ideation, intention, and/or plan. She is not reporting any auditory or visual hallucinations. She denies any paranoia or other delusions. She reports that she had difficulty with sleep last night and continues to report elevated anxiety. However, the patient does report that she has been able to address her hygiene and grooming and was able to eat well. She has been in adherent with her medications and is not reporting any significant side effects. Mental Status Exam: General Appearance: Patient appears to be stated age is alert, directable, and cooperative. Behavior: Patient is calmly seated without any agitated behavior. Speech: Patient's speech is fluent and nonpressured. Mood/Affect: Mood is improving mildly, affect is congruent and constricted. Suicidality/Homicidality: Patient denies having any suicidal or homicidal ideation, intention, and/or plan. Perceptions: Patient denies any visual hallucinations and denies any auditory hallucinations Though content/process: There is no evidence of any delusional thought content and thought process is linear and goal-directed. Memory and concentration: AOX3, grossly intact for the purposes of this session Judgment and insight: Improving mildly Vital Signs Temp 97.4 F L 12/26/22 06:34 Pulse 71 12/26/22 06:34 Resp 16 12/26/22 06:34 BP 137/76 12/26/22 06:34 Pulse Ox 95 12/25/22 00:35 FiO2 Laboratory Results - Last 24 Hours 12/25/22 06:14 Triglycerides 153.00 H Cholesterol 178.00 LDL Cholesterol, Calc 108.4 VLDL Cholesterol, Calc 30.60 HDL Cholesterol 39.00 L Cholesterol/HDL Ratio 4.56 Assessment Major depressive disorder, recurrent, severe Cannabis use, uncomplicated Posttraumatic stress disorder Nicotine dependence Plan: -Patient continues to meet criteria for inpatient psychiatric admission for symptom stabilization and safety. Patient has signed adult voluntary form and medication consent and was placed in patient's chart. -Medications: Increase Prozac to 30 mg by mouth daily for depression/anxiety/PTSD Increase Restoril to 15 mg for acute stress -When necessary Ativan and Haldol for agitation/aggression. -NRT - nicotine patch -SW on board for discharge planning. Encouraged the patient to participate in milieu.
[2022-12-26] MEDS: TEMAZEPAM 15 MG CAP PO SCH (20:49)
--- NOTE | 2022-12-27 01:12 | CONS ---
CONSULTATION HISTORY OF PRESENT ILLNESS: A 57-year-old white female, who is in the psych lee for medical consult. History of smoking. She has had nicotine patch on, COPD, but otherwise isn't on any medications at home. She is in for psych counseling and severe depression since she broke up with her 2 months ago due to alcoholism in the . MEDICATIONS AT HOME: None. SURGICAL HISTORY: Reviewed. FAMILY HISTORY: Reviewed. REVIEW OF SYSTEMS: A 14-point review of systems negative. PHYSICAL EXAMINATION: VITAL SIGNS: Blood pressure is 130s over 80s, temperature 98.3, respiratory rate 16 to 18. Afebrile. CARDIOVASCULAR: S1, S2. LUNGS: Clear. GI: Soft. HEMATOLOGY: Negative Homans. PSYCH: Fair mood and affect. NEUROLOGIC: Cranial nerves are intact. ASSESSMENT AND PLAN: Depression, unclear etiology. Nicotine addiction. Chronic obstructive pulmonary disease. Continue with home medicines, nicotine patch, and depression medicines per Psychiatry. She sat 94% on room air. Prognosis guarded. Follow up in the next 24 to 48 hours. Medically stable. MMODL / IJN: [id number] /
[2022-12-27] MEDS: FLUoxetine HCL 10 MG CAP PO SCH (09:40)
[2022-12-27] MEDS: NICOTINE 21MG/24HR PATCH TRANSDERM SCH (09:41)
--- NOTE | 2022-12-27 11:50 | P.PN ---
Progress Note - Text Progress Note Date: 12/27/22 Interval History: Patient was seen bedside this morning. Patient states she was feeling very tired yesterday following receiving Prozac. She says "I felt comatose". She is adamant on no longer being on this medication. She recalls that she was on Effexor in the past and had done well on it. She requests to be placed back on Effexor. Given that Effexor is available as a generic, discussed being restarted on Effexor today. She reports sleeping better last night on Restoril. She denies concerns with appetite. She endorses low energy currently. She is noted to be self isolating and not participating in groups this morning. Currently, the patient is not reporting any suicidal or homicidal ideation, intention, and/or plan. She is not reporting any auditory or visual hallucinations. She denies any paranoia or other delusions. Mental Status Exam: General Appearance: Patient appears to be stated age is alert, directable, and cooperative. Behavior: Patient is calmly seated without any agitated behavior. Speech: Patient's speech is fluent and nonpressured. Mood/Affect: Mood is irritable, affect is congruent Suicidality/Homicidality: Patient denies having any suicidal or homicidal ideation, intention, and/or plan. Perceptions: Patient denies any visual hallucinations and denies any auditory hallucinations Though content/process: There is no evidence of any delusional thought content and thought process is linear and goal-directed. Memory and concentration: AOX3, grossly intact for the purposes of this session Judgment and insight: Improving mildly Vital Signs Temp 97.4 F L 12/26/22 06:34 Pulse 71 12/26/22 06:34 Resp 16 12/26/22 06:34 BP 137/76 12/26/22 06:34 Pulse Ox 95 12/25/22 00:35 FiO2 Laboratory Results - Last 24 Hours 12/25/22 06:14 Triglycerides 153.00 H Cholesterol 178.00 LDL Cholesterol, Calc 108.4 VLDL Cholesterol, Calc 30.60 HDL Cholesterol 39.00 L Cholesterol/HDL Ratio 4.56 Assessment Major depressive disorder, recurrent, severe Cannabis use, uncomplicated Posttraumatic stress disorder Nicotine dependence Plan: -Patient continues to meet criteria for inpatient psychiatric admission for symptom stabilization and safety. Patient has signed adult voluntary form and medication consent and was placed in patient's chart. -Medications: Patient refusing Prozac due to excessive sedation. Will start Effexor XR 75 mg daily for mood Continue Restoril to 15 mg for acute stress -When necessary Ativan and Haldol for agitation/aggression. -NRT - nicotine patch -SW on board for discharge planning. Encouraged the patient to participate in milieu.
[2022-12-27] MEDS: VENLAFAXINE HCL ER 75 MG CAP PO SCH (12:54)
[2022-12-27] MEDS: TEMAZEPAM 15 MG CAP PO SCH (21:13)
[2022-12-28 07:04] VITALS: TEMP 97.5
[2022-12-28] MEDS: VENLAFAXINE HCL ER 75 MG CAP PO SCH (08:21)
[2022-12-28] MEDS: NICOTINE 21MG/24HR PATCH TRANSDERM SCH (08:21)
--- NOTE | 2022-12-28 15:04 | P.PN ---
Progress Note - Text Progress Note Date: 12/28/22 Interval History: Patient was seen bedside this morning. She states that she is feeling much better on the Effexor. She reports that her mood is "better ". However she states that she is feeling tired and has low energy levels because she did not sleep well last night. She reports trouble with falling asleep. Discussed that taking Effexor later in the day might have contributed to that and will monitor this tonight since she received the dose earlier in the day. Currently, the patient is not reporting any suicidal or homicidal ideation, intention, and/or plan. She is not reporting any auditory or visual hallucinations. She denies any paranoia or other delusions. Mental Status Exam: General Appearance: Patient appears to be stated age is alert, directable, and cooperative. Behavior: Patient is calmly seated without any agitated behavior. Speech: Patient's speech is fluent and nonpressured. Mood/Affect: Mood is "better", affect is congruent Suicidality/Homicidality: Patient denies having any suicidal or homicidal ideation, intention, and/or plan. Perceptions: Patient denies any visual hallucinations and denies any auditory hallucinations Though content/process: There is no evidence of any delusional thought content and thought process is linear and goal-directed. Memory and concentration: AOX3, grossly intact for the purposes of this session Judgment and insight: Improving mildly Vital Signs Temp 97.4 F L 12/26/22 06:34 Pulse 71 12/26/22 06:34 Resp 16 12/26/22 06:34 BP 137/76 12/26/22 06:34 Pulse Ox 95 12/25/22 00:35 FiO2 Laboratory Results - Last 24 Hours 12/25/22 06:14 Triglycerides 153.00 H Cholesterol 178.00 LDL Cholesterol, Calc 108.4 VLDL Cholesterol, Calc 30.60 HDL Cholesterol 39.00 L Cholesterol/HDL Ratio 4.56 Assessment Major depressive disorder, recurrent, severe Cannabis use, uncomplicated Posttraumatic stress disorder Nicotine dependence Plan: -Patient continues to meet criteria for inpatient psychiatric admission for symptom stabilization and safety. Patient has signed adult voluntary form and medication consent and was placed in patient's chart. -Medications: Continue Effexor XR 75 mg daily for mood Continue Restoril to 15 mg for acute stress -When necessary Ativan and Haldol for agitation/aggression. -NRT - nicotine patch -SW on board for discharge planning. Encouraged the patient to participate in milieu.
[2022-12-28] MEDS: TEMAZEPAM 15 MG CAP PO SCH (21:26)
[2022-12-29 07:13] VITALS: BP 100/57; PULSE 83; RESP 16
[2022-12-29] MEDS: VENLAFAXINE HCL ER 75 MG CAP PO SCH (08:34)
[2022-12-29] MEDS: NICOTINE 21MG/24HR PATCH TRANSDERM SCH (08:35)
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
== END 2022-12-29 11:11 | disposition home or self-care (01) | DRG 885 ==
LOC: EC 18:55 → 3MHU 23:18
PROVIDERS: ADMIT Psychiatry & Neurology Psychiatry; ATTEND Psychiatry & Neurology Psychiatry
DX: F33.2 Major depressive disorder, recurrent severe without psychotic features (principal); R45.851 Suicidal ideations; F43.10 Post-traumatic stress disorder, unspecified; F17.210 Nicotine dependence, cigarettes, uncomplicated; F12.10 Cannabis abuse, uncomplicated; G47.00 Insomnia, unspecified; Z79.82 Long term (current) use of aspirin; Z79.899 Other long term (current) drug therapy; Z82.49 Family history of ischemic heart disease and other diseases of the circulatory system; Z91.51 Personal history of suicidal behavior; Z63.5 Disruption of family by separation and divorce; R45.84 Anhedonia; Z62.810 Personal history of physical and sexual abuse in childhood; F41.9 Anxiety disorder, unspecified; Z81.8 Family history of other mental and behavioral disorders; Z71.51 Drug abuse counseling and surveillance of drug abuser; R45.1 Restlessness and agitation; Z20.822 Contact with and (suspected) exposure to COVID-19; Z28.311 Partially vaccinated for COVID-19; Z28.21 Immunization not carried out because of patient refusal
CPT/HCPCS: 80053; 80061; 80306; 82075; 82248; 83036; 84443; 85025; 87635; 99285